=== PATIENT | male | born 1970 | race Caucasian/White ===

== ENCOUNTER → 2016-09-20 | Outpatient (CLI) | payer MEDICARE, SELFPAY ==
[~2016-09-20] MED LIST: ACETAMINOPHEN PO; B COMPLEX1 EACH PO; BETA CAROT10000 UNIT PO; CALCIUM 600 + D1 TAB PO; CALCIUM 600 +1 EA11 PO; CEFTRIAXONE2 GM IV; CUBICIN IV; CYMBALTA30 M1 PO; DAPTOMYCIN500 MG IV; DOK PLUS TABLE1 EACH PO; DOXY 100100 MG IV; DOXYCYCLINE HY100 M2 IV; DOXYCYCLINE HY100 M3 PO; FERROUS GLUCON324 M2 PO; FERROUS SULFATE PO; FISH OIL 1,2001 EAC3 PO; FLEXERIL PO; FLOMAX0.4 M1 PO; GARLIC OIL1000 MG PO; HYDROCORTISONE30 G7 TOP; IBUPROFEN800 MG PO; IRON TABLETS1 TAB PO; MAGNESIUM500 MG PO; MELATONIN10 M1 PO; MILK OF MAGNESIA PO; NEURONTIN600 MG PO; OXYCODON-ACETA1 EAC1 PO; OXYCODONE HCL5 M1 PO; PERCOCET 5-3251 TAB PO; PERCOCET 7.5-31 EACH PO; PERCOCET5/325 PO; PERCOCET7.5 PO; ROXICODONE5 M1 PO; STOOL SOFTENER100 M1 PO; SUPER B COMPLEX1 CAP PO; TUMERIC PO; TURMERIC500 M1 PO; VANCOMYCIN1.5 GM/251 IV; VIIBRYD40 MG PO; VITAMIN B 3 PO; VITAMIN B COMP1 EACH PO; VITAMIN B-1100 M1 PO; VITAMIN B1; VITAMIN D31000 UNIT PO; VITAMIN D32000 UNI1 PO; [UNRECOGNIZED DRUG - OTHER] IM
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
--- NOTE | ~2016-09-20 | XA29 ---
[facility] A Service of [facility] & [facility] RADIOLOGY TEXT RESULTS PATIENT: TITI DIETRICH [facility] UNIT #: [id number] AGE: [address]: Brad Smith MD SEX: M ORDER DR: [id number] [place] [id number] [facility]. [place], [place] [address] [id number] O MR#: [id number] Acc #: [id number] NAME: TITI DIETRICH. : 1970 SEX: M STUDY DATE/TIME: 09/20/2016 11:19 UNIT: [facility] ROOM: STUDY DESCRIPTION: XA Arthrocentesis Intermediate Attending Physician: Brad Smith M.D. Referring Physician: Brad Smith M.D. Ordering Physician: Brad Smith M.D. Primary Care Physician: No Primary Care Physician MEDICAL IMAGING REPORT This report is preliminary unless electronic signature is present EXAM Shoulder aspiration. INDICATION Mr. Flores is a 45-year-old man with a history of multiple shoulder replacements. His most recent shoulder surgery was in July 2016, where he was noted to have extensive debris around the joint. He continues to have refractory right shoulder pain and has been referred for shoulder aspiration. He did have an MRI which did show significant fluid around the replacement. PROCEDURE The risks, benefits, and alternatives to the procedure were explained to the patient and signed, informed consent was obtained. He was placed supine on the angiographic table and prepped and draped in the usual sterile fashion. Time-out was performed as per protocol. Skin and subcutaneous tissues were anesthetized with buffered lidocaine and a 18-gauge needle was advanced into the joint space. I was able to aspirate thick bloody material. I removed approximately 5 mL of material. A sample of which will be sent to the lab for Gram stain culture and sensitivity. I was unable to remove any more fluid, likely due to its thickness. Needle was then removed and manual pressure was applied until hemostasis was obtained. Patient tolerated the procedure well and there were no immediate complications. Total fluoroscopy time was 0.2 minutes. AK was 3 mGy. IMPRESSION Technically successful right shoulder aspiration with removal of about 5 mL of bloody thick material. I was unable to remove any additional fluid, likely secondary to its thickness. Fluid will be sent to the lab for Gram stain culture and sensitivity. [facility] A Service of [facility] RADIOLOGY TEXT RESULTS PATIENT: TITI DIETRICH LOCATION: [facility] : 72 UNIT #: [id number] AGE: [address]: Brad Smith MD SEX: M ORDER DR: Dictated by... Alysia Gonsalez M.D. THIS IS AN ELECTRONICALLY VERIFIED REPORT Alysia Gonsalez M.D. at 09/21/2016 4:38 PM MIKE/jory TD: 09/21/2016 09:51 JOB #: [id number] MEDICAL IMAGING REPORT Page 1 of 1 COPY
[2016-09-20 12:10] LABS: BF TOTAL NUCLEATED CELL COUNT 2989 CMM (0-100); BODY FLUID APPEARANCE BLOODY; BODY FLUID RBC 1494482 CMM; BODY FLUID SOURCE SYNOVIAL
== END | disposition home or self-care (01) ==
LOC: CMRI 07:25
PROVIDERS: Orthopaedic Surgery
DX: T84.59XA Infection and inflammatory reaction due to other internal joint prosthesis, initial encounter (principal); M25.411 Effusion, right shoulder
CPT/HCPCS: 73223; 77002; 87070; 87205; 89051; A9577

== ENCOUNTER → 2016-10-06 | Outpatient (CLI) | payer MEDICARE ==
[2016-10-06 12:55] LABS: HEMATOCRIT 45.5 % (38.0-50.0); HEMOGLOBIN 14.6 gm/dL (13.0-16.0); MEAN CORPUSCULAR HEMOGLOBIN 26.6 PG (28-34); MEAN CORPUSCULAR HGB CONC 32.1 g/dL (30-36); RED BLOOD COUNT 5.48 X10e (3.90-5.60); RED CELL DISTRIBUTION WIDTH 14.6 % (11.0-15.5); WHITE BLOOD COUNT 6.7 X10e3 (4.0-10.5)
[2016-10-06 13:32] LABS: BUN/CREATININE RATIO 18.75; CALCIUM SERUM 9.4 mg/dL (8.4-10.2); CREATININE SERUM 0.8 mg/dL (0.6-1.4); GLOM FILT RATE Estimated 109.5 mL/min (>60); POTASSIUM 4.2 mmol/L (3.5-5.1)
== END | disposition home or self-care (01) ==
LOC: CAMB 12:08
PROVIDERS: Orthopaedic Surgery
DX: Z01.812 Encounter for preprocedural laboratory examination (principal); T84.59XA Infection and inflammatory reaction due to other internal joint prosthesis, initial encounter; Z96.611 Presence of right artificial shoulder joint
CPT/HCPCS: 36415; 80048; 85027; 85652; 86140

== ENCOUNTER 2016-10-11 07:44 | Inpatient (IN) | payer MEDICARE, SELFPAY ==
--- NOTE | ~2016-10-11 | XA166 ---
[facility] A Service of [facility] & [facility] RADIOLOGY TEXT RESULTS PATIENT: TITI DIETRICH LOCATION: [facility] 472 : 72 UNIT #: [id number] AGE: [address]: Brad Smith MD SEX: M ORDER DR: [id number] [place] [id number] [facility]. [place], [place] [address] [id number] I MR#: [id number] Acc #: [id number] NAME: TITI DIETRICH. : 1970 SEX: M STUDY DATE/TIME: 10/12/2016 12:58 UNIT: [facility] ROOM: [facility] STUDY DESCRIPTION: XA PICC Line Placement WO Port Attending Physician: Brad Smith M.D. Ordering Physician: Arlyn Lawson Aprn Primary Care Physician: Primary Care Physician No MEDICAL IMAGING REPORT This report is preliminary unless electronic signature is present EXAM Left side PICC line placement. INDICATIONS Need for IV access. Patient with history of right shoulder replacement. Patient has a history of multiple infections, last shoulder surgery was October 11, 2016. PRE-PROCEDURE The procedure was explained to the patient and/or patient paper sales representative including risks, benefits, potential complications and potential for alternative forms of treatment. Informed consent was obtained, and prior to initiating the procedure a formal timeout procedure was performed. PROCEDURE Using full standard sterile barrier technique, including caps, gowns, gloves, masks, as well as sterile skin preparation and standard sterile draping, the left arm was prepped and draped in the usual fashion, and real-time sterile ultrasound guidance was used to localize an arm vein and to confirm vessel patency. A hard copy ultrasound image was recorded. After local anesthesia with 1% Xylocaine, the vein was punctured using real-time sterile ultrasound guidance, and an 0.018 guidewire was advanced into the superior vena cava, using fluoroscopic guidance. A 5 Icelandic dual-lumen PICC was then measured and deployed with the tip positioned in the superior vena cava. The position of the line was documented with a radiographic image. The line was secured in place with an adhesive dressing and an antibiotic patch was applied. Total fluoro time was 0.5 minutes. AK 4 mGy. IMPRESSION Successful placement of a 5 Icelandic dual-lumen PowerPICC via the left arm under ultrasound and fluoroscopic guidance. The tip of the PICC is in STS. [facility] A Service of [facility] & [facility] RADIOLOGY TEXT RESULTS PATIENT: TITI DIETRICH LOCATION: [place] [address] : 72 UNIT #: [id number] AGE: [address]: Brad Smith MD SEX: M ORDER DR: good position in the superior vena cava. Dictated by... Alysia Gonsalez M.D. THIS IS AN ELECTRONICALLY VERIFIED REPORT Alysia Gonsalez M.D. at 10/14/2016 2:08 PM MIKE/kandi TD: 10/13/2016 10:42 JOB #: [id number] MEDICAL IMAGING REPORT Page 1 of 1 COPY
--- NOTE | ~2016-10-11 | CR230 ---
[facility] A Service [facility] RADIOLOGY TEXT RESULTS PATIENT: TITI DIETRICH LOCATION: [place] [address] : 74 UNIT #: [id number] AGE: [address]: Brad Smith MD SEX: M ORDER DR: [id number] [address] [address] [id number] I MR#: [id number] Acc #: [id number] NAME: TITI DIETRICH. : 1970 SEX: M STUDY DATE/TIME: 10/11/2016 13:34 UNIT: [facility] ROOM: [facility] STUDY DESCRIPTION: CR Shoulder Min 2 View Rt Attending Physician: Brad Smith M.D. Ordering Physician: Brad Smith M.D. Primary Care Physician: Primary Care Physician No MEDICAL IMAGING REPORT This report is preliminary unless electronic signature is present EXAM Right shoulder 2 views HISTORY Postop right shoulder today COMPARISON 08/25/2016 FINDINGS 2 views of the right shoulder demonstrate postoperative changes from apparent methylmethacrylate spacer within the proximal right humerus. Soft tissue swelling and soft tissue gas noted consistent with recent operative intervention. AC joint unremarkable. The visualized right thorax appears normal. IMPRESSION Postoperative change of the right shoulder. Radiodense prosthesis is noted with the humeral stem component and humeral head component. This appears to represent a methylmethacrylate spacer. Normal expected postoperative findings. Dictated by... Piyush Huizar M.D. THIS IS AN ELECTRONICALLY VERIFIED REPORT Piyush Huizar M.D. at 10/11/2016 3:32 PM WASHINGTONS/josselin TD: 10/11/2016 15:08 JOB #: [id number] MEDICAL IMAGING REPORT [facility] A Service [facility] RADIOLOGY TEXT RESULTS PATIENT: TITI DIETRICH LOCATION: [place] [address] : 74 UNIT #: [id number] AGE: [address]: Brad Smith MD SEX: M ORDER DR: Page 1 of 1 COPY
--- NOTE | ~2016-10-11 | DS ---
Unit #: [id number] #: [id number] Patient: TITI SPENCE [id number] [address] [place], [place] [address] [id number] I MR#: [id number] NAME: TITI SPENCE ROOM: [facility] Age: 45 Sex: M Admission Date: 10/11/2016 : 1970 Discharge Date: 10/13/2016 Attending Physician: Brad Smith M.D. DISCHARGE SUMMARY ADMITTING DIAGNOSIS Infected right shoulder antibiotic spacer. DISCHARGE DIAGNOSIS Infected right shoulder antibiotic spacer, status post right shoulder antibiotic spacer exchange and debridement. PROCEDURES On 10/11/2016, Mr. Spence underwent a removal of a right shoulder antibiotic spacer with replacement of a new antibiotic-impregnated spacer as well as extensive debridement and synovectomy of glenohumeral joint and humeral canal. Please see operative report for further details. BRIEF HISTORY Mr. Spence is a 45-year-old patient well known to us with a complicated history of numerous right shoulder prosthetic joint infections. He currently has an antibiotic spacer in place, which then developed a large fluid collection in the right shoulder with infectious appearing debris around the antibiotic spacer. Dr. Smith recommended a debridement of the right shoulder with an antibiotic spacer exchange. The risks, benefits, and alternatives were discussed with the patient and he elected to proceed with surgery on 10/11/2016. HOSPITAL COURSE On the night of surgery, the patient was transferred to the orthopedic unit for postoperative care. The night of surgery, he remained stable. Postop x-rays taken of the right shoulder showed that he was status post placement of antibiotic spacer. The spacer remained in correct anatomical alignment. No evidence of loosening or migration. On postop day #1, the patient's vital signs remained stable. He is awake, alert, and oriented x3, in no acute distress. His right upper extremity was clean and intact with mild dry serosanguineous drainage on the dressing. He had mild erythema and warmth on the superior and posterior aspect of the shoulder. There was no palpable fluctuance or hematoma surrounding the incision site. He had 125 mL of serosanguineous drainage out of his Hemovac drain overnight. This was discontinued in the room today. He was neurovascularly intact in the median, ulnar, and radial nerves. He had normal sensation to light touch in all 5 digits. Intraoperative cultures taken from the right shoulder were pending. His white blood cell count was 8.8 and hemoglobin was 11.9. The patient was on IV vancomycin and ceftriaxone as recommended by his infectious disease Unit #: [id number] #: [id number] Patient: SPENCETITI physician, Dr. Becker. His pain was well controlled with his current pain medications. He was on aspirin and placed in SCDs for DVT prophylaxis. He was on nonweightbearing of the right upper extremity in a sling. It was felt that the erythema on the superior and posterior aspect of the shoulder was reaction to the Ioban tape on his shoulder intraoperatively. Hydrocortisone cream was ordered to be used as needed for this. The patient was also placed on Cymbalta 30 mg p.o. daily and his dose of Neurontin was increased to 300 mg p.o. t.i.d. for pain control. The planner scheduler saw the patient to work on arranging IV antibiotic administration after discharge. The patient also received a PICC line in the hospital on postop day #1. On postop day #2, the patient's vital signs remained stable. He was awake, alert, and oriented x3, in no acute distress. His incision was clean, dry, and intact. He had mild swelling surrounding the incision site. There was no warmth or erythema surrounding the incision site. He was neurovascularly intact in the median, ulnar, and radial nerves. He had normal sensation to light touch in all 5 digits. His BUN was 15, creatinine was 0.8. White blood cell count 6.3 and hemoglobin was 11.4. Intraoperative cultures of the right shoulder were still pending, but there was no growth after 48 hours. After discussing the patient's culture results thus far with his infectious disease physician, Dr. Becker, she recommended placing him on a 6-week course of IV daptomycin and ceftriaxone. We will plan to discharge him home later today with home health versus daily visit to the outpatient infusion center to receive his IV antibiotic pending insurance approval. He will remain nonweightbearing of the right upper extremity in a sling. His dressing was changed in the room today. CONDITION AT DISCHARGE Stable. DISPOSITION The patient will be discharged home, where he will receive IV antibiotics either through home nadine care or an outpatient infusion center pending the insurance approval. DISCHARGE MEDICATIONS Hydrocortisone cream one application daily as needed to affected area; Neurontin 300 mg p.o. t.i.d.; Cymbalta 30 mg p.o. daily; docusate sodium 100 mg p.o. b.i.d.; ferrous sulfate 65 mg p.o. daily; melatonin 2 mg p.o. bedtime; calcium carbonate one tablet p.o. b.i.d.; vitamin D one tablet p.o. daily; vitamin D3 1000 units p.o. daily; Percocet 7.5/325 mg one to two tablets p.o. q.4 hours p.r.n.; daptomycin 6 mg/kg IV q.24 hours for a 6-week course with the last dose on 11/22/2016; ceftriaxone 2 g IV q.24 hours for a 6-week course with a last dose on 11/22/2016. The patient was sent home with prescriptions for Neurontin 300 mg one tablet p.o. t.i.d., dispense #90; Percocet 7.5/325 mg one to two tablets p.o. q.4 hours p.r.n., dispense #65; Cymbalta 30 mg one tablet p.o. daily, dispense #30. DISCHARGE INSTRUCTIONS The patient will follow up with Dr. Smith in two weeks' time for repeat evaluation of the right shoulder. He will remain nonweightbearing of the right upper extremity in a sling. He may remove his sling two or three times daily to perform range of motion of the elbow, wrist, and hands. He will perform daily dressing changes to the right upper extremity incision. Unit #: [id number] #: [id number] Patient: TITI SPENCE He may shower, but not to get this incision wet. He must keep an occlusive dressing over the incision site when showering. We will also be coordinating lab work for the patient. He will have a CPK, CBC with diff, and CMP weekly for the next 6 weeks. These results will be faxed to his infectious disease physician, Dr. Becker at [phone] weekly. Dictated by... Efraín Sweeney APRN for Brad Smith M.D. BENJAMIN/bang TD: 10/15/2016 06:41 JOB #: [id number] DISCHARGE SUMMARY Page 1 of 1 X EFRAÍN SWEENEY APRN DISCHARGE SUMMARY
--- NOTE | ~2016-10-11 | OR ---
Unit #: [id number] #: [id number] Patient: TITI DIETRICH [id number] [address] [place], [place] [address] [id number] I MR#: [id number] NAME: TITI DIETRICH. ROOM: 472 Date of Procedure: 10/11/2016 Admission Date: 10/11/2016 Surgeon: Brad Smith M.D. : 1970 Attending Physician: Brad Smith M.D. OPERATIVE REPORT PREOPERATIVE DIAGNOSIS Infected right shoulder antibiotic spacer. POSTOPERATIVE DIAGNOSIS Infected right shoulder antibiotic spacer. PROCEDURES PERFORMED 1. Removal of right shoulder antibiotic spacer with replacement of a new antibiotic-impregnated spacer. 2. Arthrotomy of the glenohumeral joint with extensive debridement and synovectomy including humeral canal. EDI PROGRAMMER ANALYST Arlyn Lawson APRN, [employer]. ANESTHESIA General with interscalene nerve block. ESTIMATED BLOOD LOSS 150 mL. DRAINS Medium Hemovac x1. SPECIMENS 1. Right shoulder seroma for microbiology. 2. Right glenohumeral joint to microbiology and pathology including synovial tissue. 3. Right shoulder humeral canal tissue to microbiology and pathology. IMPLANTS [employer] size 10 cement antibiotic spacer with gentamicin and vancomycin. INDICATIONS FOR PROCEDURE Mr. Woods is a 45-year-old gentleman with a complicated history of numerous right shoulder prosthetic joint infections. He now has an antibiotic spacer in place and unfortunately has developed a large fluid collection in the right shoulder with infectious-appearing debris around his antibiotic spacer. Repeat debridement and spacer exchange is indicated. DESCRIPTION OF PROCEDURE Unit #: [id number] #: [id number] Patient: TITI DIETRICH The patient was identified in the preoperative holding area. The operative site was marked. A regional block was performed. Preoperative antibiotics were held pending cultures. The patient was then brought to the operating room and placed supine on the operating table. A general anesthetic was induced. The patient was positioned in the beach-chair position. The right upper extremity was prepped and draped in sterile fashion. The previous surgical incision was identified and reopened. Dissection was carried down through the subcutaneous tissues. Medial and lateral skin flaps were elevated. The prior deltopectoral interval was identified along its approximate location. Soft tissue planes were scarred and obliterated. We performed a split through this anterior soft tissue again in the approximate deltopectoral interval. The suture line was identified confirming we were in the correct plane of his prior operation. Immediately upon opening the deeper deltopectoral tissue, there was a large fluid collection which was evacuated. Cultures were taken of this fluid. There was a large amount of infectious-appearing debris. There was no purulent fluid collection. This was similar in nature to which had been present at his previous operations. This was a loose tissue from around the shaft and stem. This was removed with rongeurs and divided into two specimen containers for microbiology for culture, including AFB and fungal. The remaining tissue was sent to pathology for a permanent section. The spacer was then fully exposed. The spacer was removed uneventfully. The humeral canal was identified. There was minimal membrane formation in the humeral canal. What was present, we did remove. At the most distal extent of the canal, we did retrieve more tissue. There was some remaining cement from his prior cement removal. We removed slightly more cement, but further attempt to removing this, we felt the risk breaching the cortical canal and fracturing the humerus. Once we had adequately debrided all of synovial tissue from the glenohumeral joint and humeral canal, attention was turned to placement of a new spacer. The spacer had been premixed with vancomycin and gentamicin cement. The stem was then placed in the canal in the desired version and height. The stem was then cemented in place externally with this rim of cement on the stem itself and then around the proximal lip of the intact canal. No cement was placed within the canal itself. The stem was held while the cement was allowed to cure. This provided satisfactory stabilization and would facilitate future antibiotic spacer removal. The shoulder was then reduced and irrigated. A drain was placed and the wound was closed in a layered fashion with 0 PDS, 2-0 PDS, and nylon on the skin. Sterile dressings were applied. DISPOSITION Stable to the recovery room. Dictated by... Liana Kitchen/bang TD: 10/12/2016 01:57 JOB #: [id number] Unit #: [id number] #: [id number] Patient: TITI DIETRICH OPERATIVE REPORT Page 1 of 1 X Brad Smith MD PROCEDURE OPERATIVE NOTE
[~2016-10-11 07:44] MED LIST changes: -BETA CAROT10000 UNIT PO; -CEFTRIAXONE2 GM IV; -CUBICIN IV; -CYMBALTA30 M1 PO; -DAPTOMYCIN500 MG IV; -DOK PLUS TABLE1 EACH PO; -FERROUS GLUCON324 M2 PO; -FERROUS SULFATE PO; -FISH OIL 1,2001 EAC3 PO; -FLEXERIL PO; -GARLIC OIL1000 MG PO; -HYDROCORTISONE30 G7 TOP; -MAGNESIUM500 MG PO; -OXYCODONE HCL5 M1 PO; -PERCOCET 7.5-31 EACH PO; -TUMERIC PO; -VITAMIN B COMP1 EACH PO; -VITAMIN B-1100 M1 PO; -VITAMIN B1; -VITAMIN D31000 UNIT PO; -VITAMIN D32000 UNI1 PO
[2016-10-11 16:13] LABS: BUN/CREATININE RATIO 21.42; CALCIUM SERUM 8.6 mg/dL (8.4-10.2); CREATININE SERUM 0.7 mg/dL (0.6-1.4); GLOM FILT RATE Estimated 115.6 mL/min (>60); POTASSIUM 4.3 mmol/L (3.5-5.1)
[2016-10-12 03:42] LABS: HEMATOCRIT 36.6 % (38.0-50.0); HEMOGLOBIN 11.9 gm/dL (13.0-16.0); MEAN CELL VOLUME 82.6 FL (83-96); MEAN CORPUSCULAR HEMOGLOBIN 26.9 PG (28-34); MEAN CORPUSCULAR HGB CONC 32.6 g/dL (30-36); RED BLOOD COUNT 4.43 X10e (3.90-5.60); RED CELL DISTRIBUTION WIDTH 15.1 % (11.0-15.5); WHITE BLOOD COUNT 8.8 X10e3 (4.0-10.5)
[2016-10-13 04:33] LABS: HEMATOCRIT 35.5 % (38.0-50.0); HEMOGLOBIN 11.4 gm/dL (13.0-16.0); MEAN CELL VOLUME 83.3 FL (83-96); MEAN CORPUSCULAR HEMOGLOBIN 26.6 PG (28-34); MEAN PLATELET VOLUME 8.2 FL (6.5-11.5); RED BLOOD COUNT 4.27 X10e (3.90-5.60); RED CELL DISTRIBUTION WIDTH 15.4 % (11.0-15.5); WHITE BLOOD COUNT 6.3 X10e3 (4.0-10.5)
[2016-10-13 04:58] LABS: BUN/CREATININE RATIO 18.75; CALCIUM SERUM 8.7 mg/dL (8.4-10.2); CREATININE SERUM 0.8 mg/dL (0.6-1.4); GLOM FILT RATE Estimated 109.5 mL/min (>60); POTASSIUM 4.4 mmol/L (3.5-5.1)
[2016-10-13 13:01] LABS: BASOPHIL% 0.5 % (0-2.5); EOSINOPHIL# 0.1 X10e3 (0-0.7); EOSINOPHIL% 1.7 % (0.0-7.0); HEMATOCRIT 36.2 % (38.0-50.0); HEMOGLOBIN 11.6 gm/dL (13.0-16.0); LYMPHOCYTE# 1.4 X10e3 (1.0-3.5); LYMPHOCYTE% 17.2 % (17.0-45.0); MEAN CELL VOLUME 82.4 FL (83-96); MEAN CORPUSCULAR HEMOGLOBIN 26.3 PG (28-34); MEAN CORPUSCULAR HGB CONC 31.9 g/dL (30-36); MEAN PLATELET VOLUME 7.9 FL (6.5-11.5); MONOCYTE# 0.4 X10e3 (0-1.0); MONOCYTE% 4.5 % (3.0-12.0); NEUTROPHIL# 6.2 X10e3 (1.5-7.1); NEUTROPHIL% 76.1 % (40-75); PLATELET COUNT 199 X10e3 (140-420); RED CELL DISTRIBUTION WIDTH 15.3 % (11.0-15.5); WHITE BLOOD COUNT 8.1 X10e3 (4.0-10.5)
[2016-10-13 13:06] LABS: DIFF IND NO
[2016-10-13 13:32] LABS: ALBUMIN SERUM 3.8 g/dL (3.5-5.0); BILIRUBIN,TOTAL 0.5 mg/dL (0.2-2.0); BUN/CREATININE RATIO 18.57; CALCIUM SERUM 8.6 mg/dL (8.4-10.2); CREATININE SERUM 0.7 mg/dL (0.6-1.4); GLOM FILT RATE Estimated 115.6 mL/min (>60); POTASSIUM 3.8 mmol/L (3.5-5.1); PROTEIN TOTAL SERUM 6.3 g/dL (6.0-8.3)
[2016-10-13] MEDS ORDERED: CYMBALTA30 M1 PO (16:17)
[2016-10-13] MEDS ORDERED: VITAMIN B COMP1 EACH PO (16:29)
[2016-10-20] MEDS ORDERED: GARLIC OIL1000 MG PO (12:25)
[2016-11-21] MEDS ORDERED: TUMERIC PO (12:20)
[2016-11-21] MEDS ORDERED: VITAMIN B1 (12:26)
[2016-11-21] MEDS ORDERED: VITAMIN D31000 UNIT PO (12:45)
[2016-11-21] MEDS ORDERED: FERROUS SULFATE PO (13:06)
[2016-11-21] MEDS ORDERED: HYDROCORTISONE30 G7 TOP (16:13)
[2016-11-21] MEDS ORDERED: CEFTRIAXONE2 GM IV (16:32)
[2016-11-21] MEDS ORDERED: CUBICIN IV (16:34)
[2016-11-21] MEDS ORDERED: PERCOCET 7.5-31 EACH PO (16:40)
[2016-11-21] MEDS ORDERED: FERROUS GLUCON324 M2 PO (16:43)
[2017-01-31] MEDS ORDERED: TURMERIC500 M1 PO (11:26)
[2017-01-31] MEDS ORDERED: VITAMIN B-1100 M1 PO (11:28)
[2017-01-31] MEDS ORDERED: VITAMIN D32000 UNI1 PO (11:31)
[2017-01-31] MEDS ORDERED: MAGNESIUM500 MG PO (11:33)
[2017-01-31] MEDS ORDERED: FERROUS SULFATE PO (11:33)
[2017-01-31] MEDS ORDERED: BETA CAROT10000 UNIT PO (11:34)
[2017-01-31] MEDS ORDERED: FISH OIL 1,2001 EAC3 PO (11:35)
== END 2016-10-13 17:40 | disposition home health service (06) | DRG 512 ==
LOC: CSUR 07:44 → CPACUOF 10:18 → C4C 13:55
PROVIDERS: Orthopaedic Surgery
PROC: 0RBJ0ZZ Excision of Right Shoulder Joint, Open Approach (ICD-10-PCS; 2016-10-11)
PROC: 0RHJ08Z Insertion of Spacer into Right Shoulder Joint, Open Approach (ICD-10-PCS; 2016-10-11)
PROC: 0RPJ08Z Removal of Spacer from Right Shoulder Joint, Open Approach (ICD-10-PCS; principal; 2016-10-11 10:00)
PROC: 02HV33Z Insertion of Infusion Device into Superior Vena Cava, Percutaneous Approach (ICD-10-PCS; 2016-10-12)
PROC: B518YZA Fluoroscopy of Superior Vena Cava using Other Contrast, Guidance (ICD-10-PCS; 2016-10-12)
PROC: B548ZZA Ultrasonography of Superior Vena Cava, Guidance (ICD-10-PCS; 2016-10-12)
DX: T84.7XXA Infection and inflammatory reaction due to other internal orthopedic prosthetic devices, implants and grafts, initial encounter (principal); F17.210 Nicotine dependence, cigarettes, uncomplicated
CPT/HCPCS: 73030; 76937; 77001; 80048; 80053; 80202; 82550; 85025; 85027; 87070; 87075; 87102; 87116; 87205; 87206; 88305; 94760; C1751; C1776; J0131; J0690; J0696; J1642; J1885; J2250; J2270; J2405; J3010; J3370

== ENCOUNTER → 2016-10-15 | Outpatient (CLI) | payer MEDICARE, SELFPAY ==
[~2016-10-15] MED LIST changes: +BETA CAROT10000 UNIT PO; +CEFTRIAXONE2 GM IV; +CUBICIN IV; +CYMBALTA30 M1 PO; +DAPTOMYCIN500 MG IV; +DOK PLUS TABLE1 EACH PO; +FERROUS GLUCON324 M2 PO; +FERROUS SULFATE PO; +FISH OIL 1,2001 EAC3 PO; +FLEXERIL PO; +GARLIC OIL1000 MG PO; +HYDROCORTISONE30 G7 TOP; +MAGNESIUM500 MG PO; +OXYCODONE HCL5 M1 PO; +PERCOCET 7.5-31 EACH PO; +TUMERIC PO; +VITAMIN B COMP1 EACH PO; +VITAMIN B-1100 M1 PO; +VITAMIN B1; +VITAMIN D31000 UNIT PO; +VITAMIN D32000 UNI1 PO
== END | disposition home or self-care (01) ==
LOC: CSSDAY 07:22
DX: T84.59XA Infection and inflammatory reaction due to other internal joint prosthesis, initial encounter (principal); M01.X11 Direct infection of right shoulder in infectious and parasitic diseases classified elsewhere; Z79.2 Long term (current) use of antibiotics
CPT/HCPCS: 96365; 96374; J0696; J0878

== ENCOUNTER → 2016-10-16 | Outpatient (CLI) | payer MEDICARE, SELFPAY | END | disposition home or self-care (01) | LOC: CSSDAY 07:33 | DX: T84.59XA Infection and inflammatory reaction due to other internal joint prosthesis, initial encounter (principal); M01.X11 Direct infection of right shoulder in infectious and parasitic diseases classified elsewhere; Z79.899 Other long term (current) drug therapy | CPT/HCPCS: 96365; 96374; J0696; J0878 ==

== ENCOUNTER → 2016-10-17 | Outpatient (CLI) | payer MEDICARE, SELFPAY | END | disposition home or self-care (01) | LOC: CSSDAY 07:29 | DX: T84.59XA Infection and inflammatory reaction due to other internal joint prosthesis, initial encounter (principal); M01.X11 Direct infection of right shoulder in infectious and parasitic diseases classified elsewhere; Z79.899 Other long term (current) drug therapy | CPT/HCPCS: 96365; 96374; J0696; J0878 ==

== ENCOUNTER → 2016-10-18 | Outpatient (CLI) | payer MEDICARE, SELFPAY | END | disposition home or self-care (01) | LOC: CSSDAY 07:25 | DX: T84.59XA Infection and inflammatory reaction due to other internal joint prosthesis, initial encounter (principal); M01.X11 Direct infection of right shoulder in infectious and parasitic diseases classified elsewhere; Z79.899 Other long term (current) drug therapy | CPT/HCPCS: 96365; 96374; J0696; J0878 ==

== ENCOUNTER → 2016-10-19 | Outpatient (CLI) | payer MEDICARE, SELFPAY | END | disposition home or self-care (01) | LOC: CSSDAY 07:33 | DX: T84.59XA Infection and inflammatory reaction due to other internal joint prosthesis, initial encounter (principal); M01.X11 Direct infection of right shoulder in infectious and parasitic diseases classified elsewhere; Z79.2 Long term (current) use of antibiotics | CPT/HCPCS: 96365; 96374; J0696; J0878 ==

== ENCOUNTER → 2016-10-20 | Outpatient (CLI) | payer MEDICARE, SELFPAY | END | disposition home or self-care (01) | LOC: CSSDAY 07:21 | DX: T84.59XA Infection and inflammatory reaction due to other internal joint prosthesis, initial encounter (principal); M01.X11 Direct infection of right shoulder in infectious and parasitic diseases classified elsewhere; Z79.2 Long term (current) use of antibiotics | CPT/HCPCS: 96365; 96374; 96375; J0696; J0878 ==

== ENCOUNTER → 2016-10-21 | Day surgery (SDC) | payer MEDICARE, SELFPAY ==
--- NOTE | ~2016-10-21 | OR ---
Unit #: [id number] #: [id number] Patient: TITI DIETRICH [id number] [address] [place], [place] [address] [id number] O MR#: [id number] NAME: TITI DIETRICH ROOM: Date of Procedure: 10/21/2016 Admission Date: 10/21/2016 Surgeon: Brad Smith M.D. : 1970 Attending Physician: Brad Smith M.D. OPERATIVE REPORT PREOPERATIVE DIAGNOSIS Right shoulder postoperative wound hematoma. POSTOPERATIVE DIAGNOSIS Right shoulder postoperative wound hematoma. PROCEDURES PERFORMED 1. Right shoulder hematoma evacuation. 2. Application of vacuum-assisted wound closure device. ANESTHESIA General. ESTIMATED BLOOD LOSS Approximately 25 mL of old hematoma fluid and 10 mL of new surgical blood loss. DRAINS Prevena incisional wound VAC management system. INDICATIONS FOR PROCEDURE Mr. Flores is a 45-year-old gentleman with multiple infected left shoulder prosthetic joint infection. He has an antibiotic spacer in place after recent antibiotic spacer exchange. He now has a postoperative wound hematoma. This has been monitored for the past 3 to 4 days and treated with an incisional wound VAC. The drainage persist and at this time, evacuation was indicated. DESCRIPTION OF PROCEDURE The patient was identified in the preoperative holding area. The operative site was marked. The patient is on standing daptomycin and Rocephin. These antibiotics were held for repeat culture. The patient was brought into the operating room and placed supine on to the operating table. General anesthetic was induced. The patient was kept position supine on a standard operating table with the head of the bed elevated approximately 20 to 30 degrees. The right upper extremity was then prepped and draped in sterile fashion. The previous sutures were removed. The inferior half of the incision was reopened. The hematoma was evacuated. Again, this was approximately 25 to 30 mL of serosanguineous fluid. The deeper fascial repair of the deltopectoral interval was intact by visualized inspection of the inferior Unit #: [id number] #: [id number] Patient: TITI DIETRICH portion and digital palpation of the proximal portion. The incision was not reopened in its entirety. The wound was then irrigated. Thrombin spray was applied to the wound and pressure was held. There was no focal bleeding vessels identified. A small skin edge was cauterized with electrocautery. Minimal other electrocautery hemostasis was required. The distal extent of the wound was then reclosed with 2-0 PDS and 3-0 nylon. A Prevena wound VAC was then applied after local skin prep. We utilized a 13 cm kit. Good seal was achieved. DISPOSITION The patient was aroused from anesthesia and transported to the recovery room in stable condition. Dictated by... Liana Kitchen/bang TD: 10/22/2016 02:10 JOB #: [id number] OPERATIVE REPORT Page 1 of 1 X Brad Smith MD X PROCEDURE OPERATIVE NOTE
== END | disposition home or self-care (01) ==
LOC: CSUR 06:34
DX: T84.59XA Infection and inflammatory reaction due to other internal joint prosthesis, initial encounter (principal); M96.840 Postprocedural hematoma of a musculoskeletal structure following a musculoskeletal system procedure; F17.210 Nicotine dependence, cigarettes, uncomplicated; Z88.6 Allergy status to analgesic agent; Z79.899 Other long term (current) drug therapy
CPT/HCPCS: 87070; 87075; 87205; 97605; J0696; J0878; J1100; J1885; J2250; J2270; J2765

== ENCOUNTER → 2016-10-22 | Outpatient (CLI) | payer MEDICARE, SELFPAY | END | disposition home or self-care (01) | LOC: CSSDAY 07:01 | DX: T84.59XA Infection and inflammatory reaction due to other internal joint prosthesis, initial encounter (principal); M01.X11 Direct infection of right shoulder in infectious and parasitic diseases classified elsewhere; Z79.2 Long term (current) use of antibiotics | CPT/HCPCS: 96365; 96374; J0696; J0878 ==

== ENCOUNTER → 2016-10-23 | Outpatient (CLI) | payer MEDICARE, SELFPAY ==
[2016-10-23 08:38] LABS: HEMATOCRIT 41.9 % (38.0-50.0); HEMOGLOBIN 13.4 gm/dL (13.0-16.0); MEAN CELL VOLUME 82.8 FL (83-96); MEAN CORPUSCULAR HEMOGLOBIN 26.4 PG (28-34); MEAN CORPUSCULAR HGB CONC 31.9 g/dL (30-36); MEAN PLATELET VOLUME 8.4 FL (6.5-11.5); RED BLOOD COUNT 5.06 X10e (3.90-5.60); RED CELL DISTRIBUTION WIDTH 16.2 % (11.0-15.5); WHITE BLOOD COUNT 5.9 X10e3 (4.0-10.5)
[2016-10-23 09:19] LABS: ALBUMIN SERUM 4.2 g/dL (3.5-5.0); BILIRUBIN,TOTAL 0.2 mg/dL (0.2-2.0); CALCIUM SERUM 9.2 mg/dL (8.4-10.2); CREATININE SERUM 0.8 mg/dL (0.6-1.4); GLOM FILT RATE Estimated 109.5 mL/min (>60); PROTEIN TOTAL SERUM 6.8 g/dL (6.0-8.3)
== END | disposition home or self-care (01) ==
LOC: CSSDAY 07:19
PROVIDERS: Orthopaedic Surgery
DX: T84.59XA Infection and inflammatory reaction due to other internal joint prosthesis, initial encounter (principal); M01.X11 Direct infection of right shoulder in infectious and parasitic diseases classified elsewhere; Z79.2 Long term (current) use of antibiotics
CPT/HCPCS: 36415; 80053; 82550; 85027; 96365; 96374; J0696; J0878

== ENCOUNTER → 2016-10-25 | Outpatient (CLI) | payer MEDICARE, SELFPAY | END | disposition home or self-care (01) | LOC: CSSDAY 07:05 | DX: T84.59XA Infection and inflammatory reaction due to other internal joint prosthesis, initial encounter (principal); M01.X11 Direct infection of right shoulder in infectious and parasitic diseases classified elsewhere; Z79.2 Long term (current) use of antibiotics | CPT/HCPCS: 96365; 96374; J0696; J0878 ==

== ENCOUNTER → 2016-10-26 | Outpatient (CLI) | payer MEDICARE, SELFPAY | END | disposition home or self-care (01) | LOC: CSSDAY 07:27 | DX: T84.59XA Infection and inflammatory reaction due to other internal joint prosthesis, initial encounter (principal); M01.X11 Direct infection of right shoulder in infectious and parasitic diseases classified elsewhere; Z79.2 Long term (current) use of antibiotics | CPT/HCPCS: 96374; 96375; J0696; J0878 ==

== ENCOUNTER → 2016-10-27 | Outpatient (CLI) | payer MEDICARE, SELFPAY | END | disposition home or self-care (01) | LOC: CSSDAY 07:19 | DX: T84.59XA Infection and inflammatory reaction due to other internal joint prosthesis, initial encounter (principal); M01.X11 Direct infection of right shoulder in infectious and parasitic diseases classified elsewhere; Z79.2 Long term (current) use of antibiotics | CPT/HCPCS: 96365; 96374; 96375; J0696; J0878 ==

== ENCOUNTER → 2016-10-28 | Outpatient (CLI) | payer MEDICARE, SELFPAY | END | disposition home or self-care (01) | LOC: CSSDAY 07:16 | DX: T84.59XA Infection and inflammatory reaction due to other internal joint prosthesis, initial encounter (principal); M01.X11 Direct infection of right shoulder in infectious and parasitic diseases classified elsewhere; Z79.2 Long term (current) use of antibiotics | CPT/HCPCS: 96365; 96374; J0696; J0878 ==

== ENCOUNTER → 2016-10-29 | Outpatient (CLI) | payer MEDICARE, SELFPAY | END | disposition home or self-care (01) | LOC: CSSDAY 07:12 | DX: T84.59XA Infection and inflammatory reaction due to other internal joint prosthesis, initial encounter (principal); M01.X11 Direct infection of right shoulder in infectious and parasitic diseases classified elsewhere; Z79.2 Long term (current) use of antibiotics | CPT/HCPCS: 96365; 96374; J0696; J0878 ==

== ENCOUNTER → 2016-10-30 | Outpatient (CLI) | payer MEDICARE, SELFPAY ==
[2016-10-30 07:54] LABS: BASOPHIL# 0.1 X10e3 (0-0.3); EOSINOPHIL# 0.2 X10e3 (0-0.7); EOSINOPHIL% 3.9 % (0.0-7.0); HEMATOCRIT 42.6 % (38.0-50.0); HEMOGLOBIN 13.6 gm/dL (13.0-16.0); LYMPHOCYTE# 1.3 X10e3 (1.0-3.5); LYMPHOCYTE% 22.3 % (17.0-45.0); MEAN CELL VOLUME 83.4 FL (83-96); MEAN CORPUSCULAR HEMOGLOBIN 26.6 PG (28-34); MEAN CORPUSCULAR HGB CONC 31.9 g/dL (30-36); MEAN PLATELET VOLUME 8.5 FL (6.5-11.5); MONOCYTE# 0.3 X10e3 (0-1.0); MONOCYTE% 5.9 % (3.0-12.0); NEUTROPHIL# 3.9 X10e3 (1.5-7.1); NEUTROPHIL% 66.9 % (40-75); PLATELET COUNT 172 X10e3 (140-420); RED CELL DISTRIBUTION WIDTH 16.9 % (11.0-15.5); WHITE BLOOD COUNT 5.8 X10e3 (4.0-10.5)
[2016-10-30 07:57] LABS: DIFF IND NO
[2016-10-30 08:35] LABS: ALBUMIN SERUM 4.1 g/dL (3.5-5.0); BILIRUBIN,TOTAL 0.5 mg/dL (0.2-2.0); BUN/CREATININE RATIO 18.57; CALCIUM SERUM 9.1 mg/dL (8.4-10.2); CREATININE SERUM 0.7 mg/dL (0.6-1.4); GLOM FILT RATE Estimated 114.8 mL/min (>60); POTASSIUM 4.1 mmol/L (3.5-5.1); PROTEIN TOTAL SERUM 6.9 g/dL (6.0-8.3)
== END | disposition home or self-care (01) ==
LOC: CSSDAY 07:23
PROVIDERS: Orthopaedic Surgery
DX: T84.59XA Infection and inflammatory reaction due to other internal joint prosthesis, initial encounter (principal); M01.X11 Direct infection of right shoulder in infectious and parasitic diseases classified elsewhere; Z79.2 Long term (current) use of antibiotics
CPT/HCPCS: 80053; 82550; 85025; 96365; 96374; J0696; J0878

== ENCOUNTER → 2016-10-31 | Outpatient (CLI) | payer MEDICARE, SELFPAY | END | disposition home or self-care (01) | LOC: CSSDAY 07:16 | DX: T84.59XA Infection and inflammatory reaction due to other internal joint prosthesis, initial encounter (principal); M01.X11 Direct infection of right shoulder in infectious and parasitic diseases classified elsewhere; Z79.2 Long term (current) use of antibiotics | CPT/HCPCS: 96365; 96374; J0696; J0878 ==

== ENCOUNTER → 2016-11-01 | Outpatient (CLI) | payer MEDICARE, SELFPAY | END | disposition home or self-care (01) | LOC: CSSDAY 07:31 | DX: T84.59XA Infection and inflammatory reaction due to other internal joint prosthesis, initial encounter (principal); M01.X11 Direct infection of right shoulder in infectious and parasitic diseases classified elsewhere; Z79.2 Long term (current) use of antibiotics | CPT/HCPCS: 96365; 96374; J0696; J0878 ==

== ENCOUNTER → 2016-11-02 | Outpatient (CLI) | payer MEDICARE, SELFPAY | END | disposition home or self-care (01) | LOC: CSSDAY 07:16 | DX: T84.59XA Infection and inflammatory reaction due to other internal joint prosthesis, initial encounter (principal); M01.X11 Direct infection of right shoulder in infectious and parasitic diseases classified elsewhere; Z79.2 Long term (current) use of antibiotics | CPT/HCPCS: 96365; 96374; J0696; J0878 ==

== ENCOUNTER → 2016-11-03 | Outpatient (CLI) | payer MEDICARE, SELFPAY | END | disposition home or self-care (01) | LOC: CSSDAY 07:15 | DX: T84.59XA Infection and inflammatory reaction due to other internal joint prosthesis, initial encounter (principal); M01.X11 Direct infection of right shoulder in infectious and parasitic diseases classified elsewhere; Z79.2 Long term (current) use of antibiotics | CPT/HCPCS: 96365; 96374; J0696; J0878 ==

== ENCOUNTER → 2016-11-04 | Outpatient (CLI) | payer MEDICARE, SELFPAY | END | disposition home or self-care (01) | LOC: CSSDAY 07:07 | DX: T84.59XA Infection and inflammatory reaction due to other internal joint prosthesis, initial encounter (principal); M01.X11 Direct infection of right shoulder in infectious and parasitic diseases classified elsewhere; Z79.2 Long term (current) use of antibiotics | CPT/HCPCS: 96365; 96374; J0696; J0878 ==

== ENCOUNTER → 2016-11-05 | Outpatient (CLI) | payer MEDICARE, SELFPAY | END | disposition home or self-care (01) | LOC: CSSDAY 07:09 | DX: T84.59XA Infection and inflammatory reaction due to other internal joint prosthesis, initial encounter (principal); M01.X11 Direct infection of right shoulder in infectious and parasitic diseases classified elsewhere; Z79.2 Long term (current) use of antibiotics | CPT/HCPCS: 96365; 96374; J0696; J0878 ==

== ENCOUNTER → 2016-11-06 | Outpatient (CLI) | payer MEDICARE, SELFPAY ==
[2016-11-06 07:42] LABS: BASOPHIL# 0.1 X10e3 (0-0.3); BASOPHIL% 1.2 % (0-2.5); EOSINOPHIL# 0.2 X10e3 (0-0.7); EOSINOPHIL% 3.6 % (0.0-7.0); HEMATOCRIT 46.3 % (38.0-50.0); HEMOGLOBIN 14.9 gm/dL (13.0-16.0); LYMPHOCYTE# 1.5 X10e3 (1.0-3.5); LYMPHOCYTE% 24.4 % (17.0-45.0); MEAN CELL VOLUME 83.6 FL (83-96); MEAN CORPUSCULAR HEMOGLOBIN 26.9 PG (28-34); MEAN CORPUSCULAR HGB CONC 32.1 g/dL (30-36); MEAN PLATELET VOLUME 8.2 FL (6.5-11.5); MONOCYTE# 0.4 X10e3 (0-1.0); NEUTROPHIL# 4.1 X10e3 (1.5-7.1); NEUTROPHIL% 64.8 % (40-75); PLATELET COUNT 188 X10e3 (140-420); RED BLOOD COUNT 5.53 X10e (3.90-5.60); RED CELL DISTRIBUTION WIDTH 17.5 % (11.0-15.5); WHITE BLOOD COUNT 6.3 X10e3 (4.0-10.5)
[2016-11-06 07:43] LABS: DIFF IND NO
[2016-11-06 08:08] LABS: ALBUMIN SERUM 4.5 g/dL (3.5-5.0); BILIRUBIN,TOTAL 0.3 mg/dL (0.2-2.0); BUN/CREATININE RATIO 18.75; CALCIUM SERUM 9.3 mg/dL (8.4-10.2); CREATININE SERUM 0.8 mg/dL (0.6-1.4); GLOM FILT RATE Estimated 108.7 mL/min (>60); PROTEIN TOTAL SERUM 7.3 g/dL (6.0-8.3)
== END | disposition home or self-care (01) ==
LOC: CSSDAY 07:10
PROVIDERS: Orthopaedic Surgery
DX: T84.59XA Infection and inflammatory reaction due to other internal joint prosthesis, initial encounter (principal); M01.X11 Direct infection of right shoulder in infectious and parasitic diseases classified elsewhere; Z79.2 Long term (current) use of antibiotics
CPT/HCPCS: 80053; 82550; 85025; 96365; 96374; J0696; J0878

== ENCOUNTER → 2016-11-07 | Outpatient (CLI) | payer MEDICARE, SELFPAY | END | disposition home or self-care (01) | LOC: CSSDAY 07:20 | DX: T84.59XA Infection and inflammatory reaction due to other internal joint prosthesis, initial encounter (principal); M01.X11 Direct infection of right shoulder in infectious and parasitic diseases classified elsewhere; Z79.2 Long term (current) use of antibiotics | CPT/HCPCS: 96365; 96374; J0696; J0878 ==

== ENCOUNTER → 2016-11-08 | Outpatient (CLI) | payer MEDICARE, SELFPAY | END | disposition home or self-care (01) | LOC: CSSDAY 07:15 | DX: T84.59XA Infection and inflammatory reaction due to other internal joint prosthesis, initial encounter (principal); M01.X11 Direct infection of right shoulder in infectious and parasitic diseases classified elsewhere; Z79.2 Long term (current) use of antibiotics | CPT/HCPCS: 96365; 96374; J0696; J0878 ==

== ENCOUNTER → 2016-11-09 | Outpatient (CLI) | payer MEDICARE, SELFPAY | END | disposition home or self-care (01) | LOC: CSSDAY 07:29 | DX: T84.59XA Infection and inflammatory reaction due to other internal joint prosthesis, initial encounter (principal); M01.X11 Direct infection of right shoulder in infectious and parasitic diseases classified elsewhere; Z79.2 Long term (current) use of antibiotics | CPT/HCPCS: 96365; 96374; J0696; J0878 ==

== ENCOUNTER → 2016-11-10 | Outpatient (CLI) | payer MEDICARE, SELFPAY | END | disposition home or self-care (01) | LOC: CSSDAY 07:14 | DX: T84.59XA Infection and inflammatory reaction due to other internal joint prosthesis, initial encounter (principal); M01.X11 Direct infection of right shoulder in infectious and parasitic diseases classified elsewhere; Z79.2 Long term (current) use of antibiotics | CPT/HCPCS: 96365; 96374; J0696; J0878 ==

== ENCOUNTER → 2016-11-11 | Outpatient (CLI) | payer MEDICARE, SELFPAY | END | disposition home or self-care (01) | LOC: CSSDAY 07:07 | DX: T84.59XA Infection and inflammatory reaction due to other internal joint prosthesis, initial encounter (principal); M01.X11 Direct infection of right shoulder in infectious and parasitic diseases classified elsewhere; Z79.2 Long term (current) use of antibiotics | CPT/HCPCS: 96365; 96374; J0696; J0878 ==

== ENCOUNTER → 2016-11-12 | Outpatient (CLI) | payer MEDICARE, SELFPAY | END | disposition home or self-care (01) | LOC: CSSDAY 07:13 | DX: T84.59XA Infection and inflammatory reaction due to other internal joint prosthesis, initial encounter (principal); M01.X11 Direct infection of right shoulder in infectious and parasitic diseases classified elsewhere; Z79.899 Other long term (current) drug therapy | CPT/HCPCS: 96365; 96374; J0696; J0878 ==

== ENCOUNTER → 2016-11-13 | Outpatient (CLI) | payer MEDICARE, SELFPAY ==
[2016-11-13 08:26] LABS: BASOPHIL% 0.9 % (0-2.5); EOSINOPHIL# 0.1 X10e3 (0-0.7); EOSINOPHIL% 2.4 % (0.0-7.0); HEMATOCRIT 45.1 % (38.0-50.0); HEMOGLOBIN 14.6 gm/dL (13.0-16.0); LYMPHOCYTE# 1.1 X10e3 (1.0-3.5); LYMPHOCYTE% 19.2 % (17.0-45.0); MEAN CELL VOLUME 84.4 FL (83-96); MEAN CORPUSCULAR HEMOGLOBIN 27.3 PG (28-34); MEAN CORPUSCULAR HGB CONC 32.3 g/dL (30-36); MEAN PLATELET VOLUME 8.2 FL (6.5-11.5); MONOCYTE# 0.4 X10e3 (0-1.0); MONOCYTE% 6.6 % (3.0-12.0); NEUTROPHIL# 4.1 X10e3 (1.5-7.1); NEUTROPHIL% 70.9 % (40-75); PLATELET COUNT 193 X10e3 (140-420); RED BLOOD COUNT 5.34 X10e (3.90-5.60); RED CELL DISTRIBUTION WIDTH 17.9 % (11.0-15.5); WHITE BLOOD COUNT 5.8 X10e3 (4.0-10.5)
[2016-11-13 08:32] LABS: DIFF IND NO
[2016-11-13 08:46] LABS: ALBUMIN SERUM 4.5 g/dL (3.5-5.0); BILIRUBIN,TOTAL 0.6 mg/dL (0.2-2.0); BUN/CREATININE RATIO 17.77; CALCIUM SERUM 9.5 mg/dL (8.4-10.2); CREATININE SERUM 0.9 mg/dL (0.6-1.4); GLOM FILT RATE Estimated 103.5 mL/min (>60); POTASSIUM 4.2 mmol/L (3.5-5.1); PROTEIN TOTAL SERUM 7.4 g/dL (6.0-8.3)
== END | disposition home or self-care (01) ==
LOC: CSSDAY 07:41
PROVIDERS: Orthopaedic Surgery
DX: T84.59XA Infection and inflammatory reaction due to other internal joint prosthesis, initial encounter (principal); M01.X11 Direct infection of right shoulder in infectious and parasitic diseases classified elsewhere; Z79.2 Long term (current) use of antibiotics
CPT/HCPCS: 80053; 82550; 85025; 96365; 96374; J0696; J0878

== ENCOUNTER → 2016-11-14 | Outpatient (CLI) | payer MEDICARE, SELFPAY, OTHER | END | disposition home or self-care (01) | LOC: CSSDAY 07:23 | DX: T84.59XA Infection and inflammatory reaction due to other internal joint prosthesis, initial encounter (principal); M01.X11 Direct infection of right shoulder in infectious and parasitic diseases classified elsewhere; Z79.899 Other long term (current) drug therapy | CPT/HCPCS: 96365; 96374; J0696; J0878 ==

== ENCOUNTER → 2016-11-15 | Outpatient (CLI) | payer MEDICARE, SELFPAY | END | disposition home or self-care (01) | LOC: CSSDAY 07:07 | DX: T84.59XA Infection and inflammatory reaction due to other internal joint prosthesis, initial encounter (principal); M01.X11 Direct infection of right shoulder in infectious and parasitic diseases classified elsewhere; Z79.2 Long term (current) use of antibiotics | CPT/HCPCS: 96365; 96374; J0696; J0878 ==

== ENCOUNTER → 2016-11-16 | Outpatient (CLI) | payer MEDICARE, SELFPAY | END | disposition home or self-care (01) | LOC: CSSDAY 06:48 | DX: T84.59XA Infection and inflammatory reaction due to other internal joint prosthesis, initial encounter (principal); M01.X11 Direct infection of right shoulder in infectious and parasitic diseases classified elsewhere; Z79.2 Long term (current) use of antibiotics | CPT/HCPCS: 96365; 96374; J0696; J0878 ==

== ENCOUNTER → 2016-11-17 | Outpatient (CLI) | payer MEDICARE, SELFPAY | END | disposition home or self-care (01) | LOC: CSSDAY 07:13 | DX: T84.59XA Infection and inflammatory reaction due to other internal joint prosthesis, initial encounter (principal); M01.X11 Direct infection of right shoulder in infectious and parasitic diseases classified elsewhere; Z79.2 Long term (current) use of antibiotics | CPT/HCPCS: 96365; 96368; 96374; J0696; J0878 ==

== ENCOUNTER → 2016-11-18 | Outpatient (CLI) | payer MEDICARE, SELFPAY | END | disposition home or self-care (01) | LOC: CSSDAY 07:15 | DX: T84.59XA Infection and inflammatory reaction due to other internal joint prosthesis, initial encounter (principal); M01.X11 Direct infection of right shoulder in infectious and parasitic diseases classified elsewhere; Z79.2 Long term (current) use of antibiotics | CPT/HCPCS: 96365; 96374; 96375; J0696; J0878 ==

== ENCOUNTER → 2016-11-19 | Outpatient (CLI) | payer MEDICARE, SELFPAY | END | disposition home or self-care (01) | LOC: CSSDAY 07:19 | DX: T84.59XA Infection and inflammatory reaction due to other internal joint prosthesis, initial encounter (principal); M01.X11 Direct infection of right shoulder in infectious and parasitic diseases classified elsewhere; Z79.2 Long term (current) use of antibiotics | CPT/HCPCS: 96365; 96374; J0696; J0878 ==

== ENCOUNTER → 2016-11-20 | Outpatient (CLI) | payer MEDICARE, SELFPAY ==
[2016-11-20 08:02] LABS: BASOPHIL% 0.5 % (0-2.5); EOSINOPHIL# 0.1 X10e3 (0-0.7); EOSINOPHIL% 1.9 % (0.0-7.0); HEMATOCRIT 42.4 % (38.0-50.0); HEMOGLOBIN 13.6 gm/dL (13.0-16.0); LYMPHOCYTE# 1.2 X10e3 (1.0-3.5); LYMPHOCYTE% 18.1 % (17.0-45.0); MEAN CELL VOLUME 85.4 FL (83-96); MEAN CORPUSCULAR HEMOGLOBIN 27.4 PG (28-34); MEAN CORPUSCULAR HGB CONC 32.1 g/dL (30-36); MEAN PLATELET VOLUME 8.1 FL (6.5-11.5); MONOCYTE# 0.6 X10e3 (0-1.0); MONOCYTE% 8.5 % (3.0-12.0); NEUTROPHIL# 4.8 X10e3 (1.5-7.1); PLATELET COUNT 187 X10e3 (140-420); RED BLOOD COUNT 4.96 X10e (3.90-5.60); RED CELL DISTRIBUTION WIDTH 18.3 % (11.0-15.5); WHITE BLOOD COUNT 6.8 X10e3 (4.0-10.5)
[2016-11-20 08:03] LABS: DIFF IND NO
[2016-11-20 08:51] LABS: BILIRUBIN,TOTAL 0.5 mg/dL (0.2-2.0); BUN/CREATININE RATIO 17.77; CALCIUM SERUM 8.9 mg/dL (8.4-10.2); CREATININE SERUM 0.9 mg/dL (0.6-1.4); GLOM FILT RATE Estimated 103.5 mL/min (>60); POTASSIUM 3.8 mmol/L (3.5-5.1); PROTEIN TOTAL SERUM 6.8 g/dL (6.0-8.3)
== END | disposition home or self-care (01) ==
LOC: CSSDAY 07:16
PROVIDERS: Orthopaedic Surgery
DX: T84.59XA Infection and inflammatory reaction due to other internal joint prosthesis, initial encounter (principal); M01.X11 Direct infection of right shoulder in infectious and parasitic diseases classified elsewhere; Z79.2 Long term (current) use of antibiotics
CPT/HCPCS: 80053; 82550; 85025; 96365; J0696; J0878

== ENCOUNTER → 2016-11-21 | Outpatient (CLI) | payer MEDICARE, SELFPAY | END | disposition home or self-care (01) | LOC: CSSDAY 06:57 | DX: T84.59XA Infection and inflammatory reaction due to other internal joint prosthesis, initial encounter (principal); M01.X11 Direct infection of right shoulder in infectious and parasitic diseases classified elsewhere; Z79.2 Long term (current) use of antibiotics | CPT/HCPCS: 96365; 96374; 96375; J0696; J0878 ==

== ENCOUNTER → 2016-11-22 | Outpatient (CLI) | payer MEDICARE, SELFPAY | END | disposition home or self-care (01) | LOC: CSSDAY 07:13 | DX: T84.59XA Infection and inflammatory reaction due to other internal joint prosthesis, initial encounter (principal); M01.X11 Direct infection of right shoulder in infectious and parasitic diseases classified elsewhere; Z79.2 Long term (current) use of antibiotics | CPT/HCPCS: 96365; 96374; 96375; J0696; J0878 ==

== ENCOUNTER → 2016-11-23 | Outpatient (CLI) | payer MEDICARE, SELFPAY | END | disposition home or self-care (01) | LOC: CSSDAY 07:54 | DX: T84.59XA Infection and inflammatory reaction due to other internal joint prosthesis, initial encounter (principal); M01.X11 Direct infection of right shoulder in infectious and parasitic diseases classified elsewhere; Z79.2 Long term (current) use of antibiotics | CPT/HCPCS: 96365; 96375; J0696; J0878 ==

== ENCOUNTER → 2016-11-24 | Outpatient (CLI) | payer MEDICARE, SELFPAY | END | disposition home or self-care (01) | LOC: CSSDAY 07:10 | DX: T84.59XA Infection and inflammatory reaction due to other internal joint prosthesis, initial encounter (principal); M01.X11 Direct infection of right shoulder in infectious and parasitic diseases classified elsewhere | CPT/HCPCS: 96365; 96375; J0696; J0878 ==

== ENCOUNTER → 2016-11-25 | Outpatient (CLI) | payer MEDICARE, SELFPAY | END | disposition home or self-care (01) | LOC: CSSDAY 07:06 | DX: T84.59XA Infection and inflammatory reaction due to other internal joint prosthesis, initial encounter (principal); M01.X11 Direct infection of right shoulder in infectious and parasitic diseases classified elsewhere | CPT/HCPCS: 96365; 96374; 96375; J0696; J0878 ==

== ENCOUNTER → 2016-11-26 | Outpatient (CLI) | payer MEDICARE, SELFPAY | END | disposition home or self-care (01) | LOC: CSSDAY 07:03 | DX: T84.59XA Infection and inflammatory reaction due to other internal joint prosthesis, initial encounter (principal); M01.X11 Direct infection of right shoulder in infectious and parasitic diseases classified elsewhere | CPT/HCPCS: 96365; 96374; 96375; J0696; J0878 ==

== ENCOUNTER → 2016-11-27 | Outpatient (CLI) | payer MEDICARE, SELFPAY ==
[2016-11-27 08:26] LABS: BASOPHIL% 0.7 % (0-2.5); EOSINOPHIL# 0.2 X10e3 (0-0.7); EOSINOPHIL% 2.9 % (0.0-7.0); HEMATOCRIT 45.7 % (38.0-50.0); HEMOGLOBIN 14.7 gm/dL (13.0-16.0); LYMPHOCYTE# 1.4 X10e3 (1.0-3.5); LYMPHOCYTE% 19.7 % (17.0-45.0); MEAN CORPUSCULAR HEMOGLOBIN 27.7 PG (28-34); MEAN CORPUSCULAR HGB CONC 32.3 g/dL (30-36); MEAN PLATELET VOLUME 8.5 FL (6.5-11.5); MONOCYTE# 0.4 X10e3 (0-1.0); MONOCYTE% 6.4 % (3.0-12.0); NEUTROPHIL# 4.9 X10e3 (1.5-7.1); NEUTROPHIL% 70.3 % (40-75); PLATELET COUNT 213 X10e3 (140-420); RED BLOOD COUNT 5.31 X10e (3.90-5.60); RED CELL DISTRIBUTION WIDTH 17.7 % (11.0-15.5); WHITE BLOOD COUNT 6.9 X10e3 (4.0-10.5)
[2016-11-27 08:27] LABS: DIFF IND NO
[2016-11-27 08:51] LABS: ALBUMIN SERUM 4.3 g/dL (3.5-5.0); BILIRUBIN,TOTAL 0.8 mg/dL (0.2-2.0); BUN/CREATININE RATIO 21.25; CALCIUM SERUM 9.3 mg/dL (8.4-10.2); CREATININE SERUM 0.8 mg/dL (0.6-1.4); GLOM FILT RATE Estimated 108.7 mL/min (>60); POTASSIUM 3.8 mmol/L (3.5-5.1); PROTEIN TOTAL SERUM 7.1 g/dL (6.0-8.3)
== END | disposition home or self-care (01) ==
LOC: CSSDAY 07:25
PROVIDERS: Orthopaedic Surgery
DX: T84.59XA Infection and inflammatory reaction due to other internal joint prosthesis, initial encounter (principal); M01.X11 Direct infection of right shoulder in infectious and parasitic diseases classified elsewhere; Z79.2 Long term (current) use of antibiotics
CPT/HCPCS: 80053; 82550; 85025; 85652; 86140; 96365; 96374; 96375; J0696; J0878

== ENCOUNTER → 2016-11-28 | Outpatient (CLI) | payer MEDICARE, SELFPAY, OTHER | END | disposition home or self-care (01) | LOC: CSSDAY 07:44 | DX: T84.59XA Infection and inflammatory reaction due to other internal joint prosthesis, initial encounter (principal); M01.X11 Direct infection of right shoulder in infectious and parasitic diseases classified elsewhere | CPT/HCPCS: 96365; 96374; 96375; J0696; J0878 ==

== ENCOUNTER → 2016-11-29 | Outpatient (CLI) | payer MEDICARE, SELFPAY | END | disposition home or self-care (01) | LOC: CSSDAY 07:30 | DX: T84.59XA Infection and inflammatory reaction due to other internal joint prosthesis, initial encounter (principal); M01.X11 Direct infection of right shoulder in infectious and parasitic diseases classified elsewhere | CPT/HCPCS: 96365; 96374; 96375; J0696; J0878 ==

== ENCOUNTER → 2016-11-30 | Outpatient (CLI) | payer OTHER, SELFPAY | END | disposition home or self-care (01) | LOC: CSSDAY 06:57 | DX: T84.59XA Infection and inflammatory reaction due to other internal joint prosthesis, initial encounter (principal); M01.X11 Direct infection of right shoulder in infectious and parasitic diseases classified elsewhere | CPT/HCPCS: 96365; 96374; 96375; J0696; J0878 ==

== ENCOUNTER → 2016-12-01 | Outpatient (CLI) | payer OTHER, SELFPAY | END | disposition home or self-care (01) | LOC: CSSDAY 07:50 | DX: T84.59XA Infection and inflammatory reaction due to other internal joint prosthesis, initial encounter (principal); M01.X11 Direct infection of right shoulder in infectious and parasitic diseases classified elsewhere | CPT/HCPCS: 96365; 96374; 96375; J0696; J0878 ==

== ENCOUNTER → 2016-12-01 | Outpatient (CLI) | payer OTHER, SELFPAY ==
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
== END | disposition home or self-care (01) ==
LOC: CMRI 17:20
DX: M86.8X2 Other osteomyelitis, upper arm (principal); R59.0 Localized enlarged lymph nodes
CPT/HCPCS: 73223; A9577; J0878

== ENCOUNTER → 2016-12-02 | Outpatient (CLI) | payer OTHER, SELFPAY | END | disposition home or self-care (01) | LOC: CSSDAY 07:00 | DX: T84.59XA Infection and inflammatory reaction due to other internal joint prosthesis, initial encounter (principal); M01.X11 Direct infection of right shoulder in infectious and parasitic diseases classified elsewhere | CPT/HCPCS: 96365; 96374; 96375; J0696; J0878 ==

== ENCOUNTER → 2017-01-31 | Outpatient (CLI) | payer OTHER ==
[2017-01-31 09:37] LABS: HEMATOCRIT 48.7 % (38.0-50.0); HEMOGLOBIN 16.4 gm/dL (13.0-16.0); MEAN CELL VOLUME 88.1 FL (83-96); MEAN CORPUSCULAR HEMOGLOBIN 29.6 PG (28-34); MEAN CORPUSCULAR HGB CONC 33.6 g/dL (30-36); MEAN PLATELET VOLUME 7.8 FL (6.5-11.5); RED BLOOD COUNT 5.53 X10e (3.90-5.60); RED CELL DISTRIBUTION WIDTH 14.9 % (11.0-15.5); WHITE BLOOD COUNT 7.1 X10e3 (4.0-10.5)
[2017-01-31 10:44] LABS: BUN/CREATININE RATIO 17.77; CALCIUM SERUM 9.3 mg/dL (8.4-10.2); CREATININE SERUM 0.9 mg/dL (0.6-1.4); GLOM FILT RATE Estimated 103.5 mL/min (>60); POTASSIUM 4.2 mmol/L (3.5-5.1)
== END | disposition home or self-care (01) ==
LOC: CAMB 01-30 10:00
PROVIDERS: Orthopaedic Surgery
DX: Z01.812 Encounter for preprocedural laboratory examination (principal); M00.9 Pyogenic arthritis, unspecified
CPT/HCPCS: 36415; 80048; 85027; 85652; 86140

== ENCOUNTER 2017-02-07 09:01 | Inpatient (IN) | payer OTHER ==
[~2017-02-07] VITALS: Ht 182.9 cm; Wt 83.0 kg
--- NOTE | ~2017-02-07 | CR230 ---
[facility] A Service of [facility] RADIOLOGY TEXT RESULTS PATIENT: TITI DIETRICH LOCATION: [place] [address] : 74 UNIT #: [id number] AGE: [address]: Brad Smith MD SEX: M ORDER DR: [id number] [place] [address] [facility]. [place], [place] [address] [id number] I MR#: [id number] Acc #: [id number] NAME: TITI DIETRICH : 1970 SEX: M STUDY DATE/TIME: 02/07/2017 16:40 UNIT: [facility] ROOM: [facility] STUDY DESCRIPTION: CR Shoulder Min 2 View Rt Attending Physician: Brad Smith M.D. Ordering Physician: Caleb Min M.D. Primary Care Physician: Brad Smith M.D. MEDICAL IMAGING REPORT This report is preliminary unless electronic signature is present EXAM Right shoulder series HISTORY Status post OR shoulder removal. FINDINGS AP and transscapular view of the right shoulder presented. Artifact from clothing and supportive equipment overlying relevant anatomy. Comparison 02/02/2017. The patient is status post excision of previously seen cement density right humeral head and proximal shaft prosthesis. There is no evidence of traumatic fracture. The acromioclavicular joint remains aligned. There are radiodensities superimposed over the operative bed which may reflect small residual bone chips or cement fragments. There is air in the operative bed. Surgical drain in operative bed. Visualized ribs intact. Pulmonary parenchyma shows mild interstitial prominence which may be a reflection of atelectasis given postoperative state. Correlate with any concern for possible mild interstitial edema. Dictated by... Jordan Tidwell M.D. THIS IS AN ELECTRONICALLY VERIFIED REPORT Jordan Tidwell M.D. at 02/09/2017 7:36 AM SONAL/greta TD: 02/08/2017 06:09 JOB #: [id number] [facility] A Service [facility] RADIOLOGY TEXT RESULTS PATIENT: TITI DIETRICH LOCATION: [facility] 477-01 : 74 UNIT #: [id number] AGE: [address]: Brad Smith MD SEX: M ORDER DR: MEDICAL IMAGING REPORT Page 1 of 1 COPY
--- NOTE | ~2017-02-07 | CR230 ---
[facility] A Service of [facility] & [facility] RADIOLOGY TEXT RESULTS PATIENT: TITI DIETRICH LOCATION: [place] [address] : 74 UNIT #: [id number] AGE: [address]: Brad Smith MD SEX: M ORDER DR: [id number] [facility] [address] [facility]. [place], [place] [address] [id number] I MR#: [id number] Acc #: [id number] NAME: TITI DIETRICH : 1970 SEX: M STUDY DATE/TIME: 02/07/2017 13:33 UNIT: [facility] ROOM: [facility] STUDY DESCRIPTION: CR Shoulder Min 2 View Rt Attending Physician: Brad Smith M.D. Ordering Physician: Brad Smith M.D. Primary Care Physician: Brad Smith M.D. MEDICAL IMAGING REPORT This report is preliminary unless electronic signature is present EXAM C-arm fluoroscopy with 3 permanent images of the right shoulder, 02/07/2017. HISTORY Right shoulder cement removal in OR. FINDINGS C-arm fluoroscopy was provided for use in the operating room. Three spot film radiographs of the right shoulder were obtained in the anterior projection and 85.6 seconds of fluoroscopy time was utilized. The exam shows removal of the cement from the proximal right humerus. Dictated by... Brad Martinez M.D. THIS IS AN ELECTRONICALLY VERIFIED REPORT Brad Martinez M.D. at 02/08/2017 10:21 AM SUE/foster TD: 02/08/2017 05:32 JOB #: [id number] MEDICAL IMAGING REPORT Page 1 of 1 COPY
--- NOTE | ~2017-02-07 | XA166 ---
[facility] A Service of [facility] RADIOLOGY TEXT RESULTS PATIENT: TITI DIETRICH LOCATION: [facility] 477-01 : 74 UNIT #: [id number] AGE: [address]: Brad Smith MD SEX: M ORDER DR: [id number] [facility] [address] [facility]. [place], [place] [address] [id number] I MR#: [id number] Acc #: [id number] NAME: TITI DIETRICH : 1970 SEX: M STUDY DATE/TIME: 02/09/2017 12:38 UNIT: [facility] ROOM: [facility] STUDY DESCRIPTION: XA PICC Line Placement WO Port Attending Physician: Brad Smith M.D. Ordering Physician: Brad Smith M.D. Primary Care Physician: Brad Smith M.D. MEDICAL IMAGING REPORT This report is preliminary unless electronic signature is present EXAM PICC placement with ultrasound and fluoroscopic guidance HISTORY Venous access needed for medications. PRE-PROCEDURE The procedure was explained to the patient and/or patient new accounts representative including risks, benefits, potential complications and potential for alternative forms of treatment. Informed consent was obtained, and prior to initiating the procedure a formal timeout procedure was performed. PROCEDURE Using full standard sterile barrier technique, including caps, gowns, gloves, masks, as well as sterile skin preparation and standard sterile draping, the left arm was prepped and draped in the usual fashion, and real-time sterile ultrasound guidance was used to localize an arm vein and to confirm vessel patency. A hard copy ultrasound image was recorded. After local anesthesia with 1% Xylocaine, the vein was punctured using real-time sterile ultrasound guidance, and an 0.018 guidewire was advanced into the superior vena cava, using fluoroscopic guidance. A 5-Cymro double-lumen 46-cm PICC was then measured and deployed with the tip positioned in the superior vena cava. The position of the line was documented with a radiographic image. The line was secured in place with an adhesive dressing and an antibiotic patch was applied. Total fluoro time was 0.8 minutes. A single fluoroscopic spot image was obtained. AK 4 mGy. IMPRESSION 1. Successful placement of a 5-Cymro double-lumen 46-cm Power PICC via the right arm under ultrasound and fluoroscopic guidance. The tip of the PICC is in good position in the superior vena cava. [facility] A Service of [facility] & [facility] RADIOLOGY TEXT RESULTS PATIENT: TITI DIETRICH LOCATION: [place] [address]- : 74 UNIT #: [id number] AGE: [address]: Brad Smith MD SEX: M ORDER DR: 2. A single fluoroscopic spot image was obtained. Dictated by... Ryan Roberson M.D. THIS IS AN ELECTRONICALLY VERIFIED REPORT Ryan Roberson M.D. at 02/10/2017 11:30 AM MAREK/georges TD: 02/09/2017 22:08 JOB #: [id number] MEDICAL IMAGING REPORT Page 1 of 1 COPY
--- NOTE | ~2017-02-07 | DS ---
Unit #: [id number] #: [id number] Patient: TITI DIETRICH [id number] [address] [place], [place] [address] [id number] I MR#: [id number] NAME: TITI DIETRICH ROOM: 477 Age: 46 Sex: M Admission Date: 02/07/2017 : 1970 Discharge Date: 02/09/2017 Attending Physician: Brad Smith M.D. Primary Care Physician: Brad Smith M.D. DISCHARGE SUMMARY ADMISSION HISTORY Multiply infected right shoulder. POSTOPERATIVE DIAGNOSIS Multiply infected right shoulder. PROCEDURE THIS HOSPITALIZATION Removal right shoulder antibiotic spacer with repeat debridement and resection arthroplasty. ADMISSION HISTORY Briefly, Mr. Dietrich is a 46-year-old gentleman with a complex history of multiple operations on his right shoulder from initial proximal humerus fracture. He has undergone multiple arthroplasty options, all of which have been infected. He now returns with an infected antibiotic spacer for repeat debridement and resection arthroplasty. HOSPITAL COURSE The patient was taken to the operating room on the date of admission. For further details, please see dictated operative note. His spacer was found to be loose. We took multiple cultures and removed his spacer and attempted to remove the remaining cement. On postop day #2, the patient was up and ambulatory independently. His pain was well controlled with oral pain medications. He was medically stable for discharge home. His antibiotic plan was in place with daptomycin 6 mg/kg x6 weeks and Rocephin 2 g IV daily x6 weeks. DISCHARGE MEDICATIONS 1. Magnesium 500 mg p.o. daily. 2. Gabapentin 600 mg, two p.o. t.i.d. 3. Cymbalta 30 mg p.o. q. h.s. 4. Colace 250 mg p.o. b.i.d. 5. Ferrous sulfate 65 mg p.o. daily. 6. Fish oil daily. 7. capsule daily. 8. Melatonin 10 mg p.o. q. h.s. 9. Tumeric root 500 mg p.o. b.i.d. 10. Calcium/vitamin D supplement daily. 11. Beta-carotene 15 mg p.o. daily. 12. Vitamin B1 100 mg p.o. daily. 13. Vitamin B complex daily. 14. Vitamin D3 2000 units p.o. daily. Unit #: [id number] #: [id number] Patient: TITI DIETRICH 15. Daptomycin 6 mg/kg IV q.24 hours x6 weeks, stop date 03/23/17. 16. Rocephin 2 g IV daily x6 weeks, stop date 03/23/2017. 17. Oxycodone 5 mg, one to two tabs p.o. q.4 hours p.r.n. 18. Flexeril 5 mg p.o. t.i.d. p.r.n. FOLLOWUP Follow up in two weeks time as scheduled. Dictated by... Liana Kitchen/vida TD: 02/12/2017 05:42 JOB #: [id number] DISCHARGE SUMMARY Page 1 of 1 X Brad Smith MD X DISCHARGE SUMMARY
[~2017-02-07 09:01] MED LIST changes: -DAPTOMYCIN500 MG IV; -DOK PLUS TABLE1 EACH PO; -FLEXERIL PO; -OXYCODONE HCL5 M1 PO
[2017-02-08 04:14] LABS: HEMATOCRIT 38.8 % (38.0-50.0); MEAN CORPUSCULAR HEMOGLOBIN 29.5 PG (28-34); MEAN CORPUSCULAR HGB CONC 33.5 g/dL (30-36); MEAN PLATELET VOLUME 8.3 FL (6.5-11.5); RED BLOOD COUNT 4.4 X10e (3.90-5.60); RED CELL DISTRIBUTION WIDTH 14.6 % (11.0-15.5); WHITE BLOOD COUNT 6.9 X10e3 (4.0-10.5)
[2017-02-09 03:25] LABS: HEMATOCRIT 36.5 % (38.0-50.0); HEMOGLOBIN 12.4 gm/dL (13.0-16.0); MEAN CELL VOLUME 87.3 FL (83-96); MEAN CORPUSCULAR HEMOGLOBIN 29.5 PG (28-34); MEAN CORPUSCULAR HGB CONC 33.8 g/dL (30-36); MEAN PLATELET VOLUME 8.3 FL (6.5-11.5); RED BLOOD COUNT 4.19 X10e (3.90-5.60); RED CELL DISTRIBUTION WIDTH 14.4 % (11.0-15.5); WHITE BLOOD COUNT 6.2 X10e3 (4.0-10.5)
[2017-02-09 03:49] LABS: BUN/CREATININE RATIO 12.22; CALCIUM SERUM 8.4 mg/dL (8.4-10.2); CREATININE SERUM 0.9 mg/dL (0.6-1.4); GLOM FILT RATE Estimated 103.5 mL/min (>60); POTASSIUM 3.9 mmol/L (3.5-5.1)
[2017-02-09] MEDS ORDERED: FLEXERIL PO (14:20)
[2017-02-09] MEDS ORDERED: OXYCODONE HCL5 M1 PO (14:21)
[2017-02-09] MEDS ORDERED: DOK PLUS TABLE1 EACH PO (14:22)
[2017-02-09] MEDS ORDERED: CEFTRIAXONE2 GM IV (14:24)
[2017-02-09] MEDS ORDERED: DAPTOMYCIN500 MG IV (14:34)
== END 2017-02-09 15:30 | disposition home health service (06) | DRG 478 ==
LOC: CSUR 09:01 → C4C 16:10 → CSUR 17:59 → C4C 02-09 15:30
PROVIDERS: Orthopaedic Surgery
PROC: 0RPJ08Z Removal of Spacer from Right Shoulder Joint, Open Approach (ICD-10-PCS; principal; 2017-02-07 11:30)
PROC: 0PBC0ZX Excision of Right Humeral Head, Open Approach, Diagnostic (ICD-10-PCS; 2017-02-07 11:30)
PROC: 02HV33Z Insertion of Infusion Device into Superior Vena Cava, Percutaneous Approach (ICD-10-PCS; 2017-02-09)
PROC: B518YZA Fluoroscopy of Superior Vena Cava using Other Contrast, Guidance (ICD-10-PCS; 2017-02-09)
PROC: B548ZZA Ultrasonography of Superior Vena Cava, Guidance (ICD-10-PCS; 2017-02-09)
DX: T84.7XXA Infection and inflammatory reaction due to other internal orthopedic prosthetic devices, implants and grafts, initial encounter (principal); M86.611 Other chronic osteomyelitis, right shoulder; F32.9 Major depressive disorder, single episode, unspecified; Z88.5 Allergy status to narcotic agent; Z81.1 Family history of alcohol abuse and dependence; Z82.61 Family history of arthritis; Z82.5 Family history of asthma and other chronic lower respiratory diseases; Z81.8 Family history of other mental and behavioral disorders; G43.909 Migraine, unspecified, not intractable, without status migrainosus; Z87.891 Personal history of nicotine dependence
CPT/HCPCS: 73030; 76001; 76937; 77001; 80048; 85027; 87070; 87075; 87205; 88305; 88307; 88311; C1769; J0330; J0696; J1642; J2250; J2270; J2405; J2550; J2710; J2795; J3010; J3370

== ENCOUNTER → 2017-02-10 | Outpatient (CLI) | payer OTHER ==
[~2017-02-10] MED LIST changes: +DAPTOMYCIN500 MG IV; +DOK PLUS TABLE1 EACH PO; +FLEXERIL PO; +OXYCODONE HCL5 M1 PO
== END | disposition home or self-care (01) ==
LOC: CSSDAY 07:35
DX: T84.59XS Infection and inflammatory reaction due to other internal joint prosthesis, sequela (principal); Z96.611 Presence of right artificial shoulder joint; Z79.2 Long term (current) use of antibiotics
CPT/HCPCS: 96365; 96374; J0696; J0878

== ENCOUNTER → 2017-02-11 | Outpatient (CLI) | payer OTHER | END | disposition home or self-care (01) | LOC: CSSDAY 07:17 | DX: T84.59XS Infection and inflammatory reaction due to other internal joint prosthesis, sequela (principal); Z96.611 Presence of right artificial shoulder joint; Z79.2 Long term (current) use of antibiotics | CPT/HCPCS: 96365; 96374; J0696; J0878 ==

== ENCOUNTER → 2017-02-12 | Outpatient (CLI) | payer OTHER ==
--- NOTE | ~2017-02-12 | OR ---
Unit #: [id number] #: [id number] Patient: TITI DIETRICH [id number] [address] [place], [place] [address] [id number] O MR#: [id number] NAME: TITI DIETRICH ROOM: Date of Procedure: 02/07/2017 Admission Date: 02/12/2017 Surgeon: Brad Smith M.D. : 1970 Attending Physician: Brad Smith M.D. Primary Care Physician: Primary Care Physician No OPERATIVE REPORT PREOPERATIVE DIAGNOSIS Multiple infected right shoulder, status post placement of antibiotic spacer. POSTOPERATIVE DIAGNOSIS Multiple infected right shoulder, status post placement of antibiotic spacer. PROCEDURES PERFORMED 1. Resection arthroplasty of right shoulder. 2. Removal of right shoulder antibiotic spacer. 3. Arthrotomy with debridement of glenohumeral joint. PROGRAM DIRECTOR GROUP WORK Arlyn Lawson. ANESTHESIA General with interscalene nerve block. COMPLICATIONS None apparent. DRAINS 1. Medium Hemovac x1. 2. Prevena wound VAC management system. INDICATIONS FOR PROCEDURE Titi is a 46-year-old gentleman, who is well known to me for sequelae of a multiple infected right shoulder. He most recently has had a difficulty with an infected antibiotic spacers. He now presents with a recurrent pain in his right shoulder and MRI findings concerning for osteomyelitis and fluid collection around the implant. He presents for repeat debridement, removal of antibiotic spacer, and resection arthroplasty. We have had multiple discussions regarding the nature of the proposed operation and the nature of a resection arthroplasty in the shoulder. We have reviewed this thoroughly, so that he might have appropriate expectations and best understanding as possible what to expect from the shoulder. At this point, placement of another antibiotic spacer thought to likely continue to place him at risk for further infection. As such, at this juncture, we will not be placing a new antibiotic spacer. Unit #: [id number] #: [id number] Patient: TITI DIETRICH DESCRIPTION OF PROCEDURE The patient was identified in the preoperative holding area. The operative site was marked. Preoperative antibiotics were held. Regional anesthetic block was performed. The patient was brought to the operating room and placed supine on the operating table. A general anesthetic was induced. The patient was then positioned in the beach-chair position. The right upper extremity was prepped and draped in sterile fashion. His previous incision was identified. This was marked out with skin marking pen. This was then reopened and dissection carried down through subcutaneous tissues. We identified the best plane through the deltopectoral interval. This was scarred and fibrotic and true muscular intervals no longer identifiable. We then began elevating the deltoid down to the pseudocapsule. Once we entered the pseudocapsular tissues of the glenohumeral joint, there was clear serous fluid identified. This was cultured. In similar nature to his previous operation, there was a large volume of fibrinous exudative type debris around the implant. This was membrane like material which was easily removed with a rongeur. There was fairly copious amounts of this, but actually less than at his last operation. This tissue was taken for culture and for permanent pathology. The antibiotic spacer itself was loose and freely spinning in the humeral canal. This was removed. We then took curetting the membrane samples from the canal for pathology and microbiology. The humerus was then dissected circumferentially. A small microsagittal saw was used to resect humerus back to a level cut in the proximal humerus effectively completing resection arthroplasty. This bone was sent for permanent pathology to identify presence of chronic osteomyelitis. We then spent a considerable amount of time trying to remove any remaining cement from the canal. We used a combination of the cement removal curette and osteotomes as well as the Ultra-Drive. We removed as much cement as possible with the Ultra-Drive and the remaining cement extraction instruments. We spent upwards of 2 hours removing cement. At that point, it was felt that we can remove cement. There was some remaining visible on the C-arm imaging, but the visualization within the humeral canal diminishing risks benefit to the patient. I had concerns about overheating the canal radial nerve at risk. Therefore, we thoroughly irrigated the wound with sterile saline and then dilute Betadine solution. Finally, we irrigated with a Pulsavac. The deltopectoral interval was then reapproximated. Again, no implant was placed back into the humeral canal leaving it with a resection arthroplasty. A drain was placed into the space. The subcutaneous tissues were then closed including nylon on the skin. Prevena wound VAC dressing was applied. The patient was placed into this shoulder immobilizer. DISPOSITION Stable to the recovery room. Dictated by... Brad Smith M.D. [facility] Unit #: [id number] #: [id number] Patient: TITI DIETRICH TD: 02/12/2017 18:57 JOB #: [id number] OPERATIVE REPORT Page 1 of 1 X Brad Smith MD X PROCEDURE OPERATIVE NOTE
[2017-02-12 08:51] LABS: BASOPHIL% 0.4 % (0-2.5); EOSINOPHIL# 0.2 X10e3 (0-0.7); EOSINOPHIL% 3.9 % (0.0-7.0); HEMATOCRIT 38.7 % (38.0-50.0); HEMOGLOBIN 13.1 gm/dL (13.0-16.0); LYMPHOCYTE# 1.2 X10e3 (1.0-3.5); LYMPHOCYTE% 20.5 % (17.0-45.0); MEAN CELL VOLUME 87.3 FL (83-96); MEAN CORPUSCULAR HEMOGLOBIN 29.5 PG (28-34); MEAN CORPUSCULAR HGB CONC 33.8 g/dL (30-36); MEAN PLATELET VOLUME 7.9 FL (6.5-11.5); MONOCYTE# 0.3 X10e3 (0-1.0); MONOCYTE% 5.3 % (3.0-12.0); NEUTROPHIL# 4.1 X10e3 (1.5-7.1); NEUTROPHIL% 69.9 % (40-75); PLATELET COUNT 197 X10e3 (140-420); RED BLOOD COUNT 4.43 X10e (3.90-5.60); RED CELL DISTRIBUTION WIDTH 14.8 % (11.0-15.5); WHITE BLOOD COUNT 5.8 X10e3 (4.0-10.5)
[2017-02-12 08:52] LABS: DIFF IND NO
[2017-02-12 09:08] LABS: ALBUMIN SERUM 3.9 g/dL (3.5-5.0); BILIRUBIN,TOTAL 0.3 mg/dL (0.2-2.0); BUN/CREATININE RATIO 16.66; CALCIUM SERUM 8.6 mg/dL (8.4-10.2); CREATININE SERUM 0.9 mg/dL (0.6-1.4); GLOM FILT RATE Estimated 103.5 mL/min (>60); POTASSIUM 4.1 mmol/L (3.5-5.1); PROTEIN TOTAL SERUM 6.5 g/dL (6.0-8.3)
== END | disposition home or self-care (01) ==
LOC: CSSDAY 07:47
PROVIDERS: Orthopaedic Surgery
DX: T84.59XS Infection and inflammatory reaction due to other internal joint prosthesis, sequela (principal); Z96.611 Presence of right artificial shoulder joint
CPT/HCPCS: 80053; 82550; 85025; 85652; 86140; 96365; 96374; 96375; J0696; J0878

== ENCOUNTER → 2017-02-13 | Outpatient (CLI) | payer OTHER | END | disposition home or self-care (01) | LOC: CSSDAY 08:39 | DX: T84.59XS Infection and inflammatory reaction due to other internal joint prosthesis, sequela (principal); Z96.611 Presence of right artificial shoulder joint; Z79.2 Long term (current) use of antibiotics | CPT/HCPCS: 96365; 96374; J0696; J0878 ==

== ENCOUNTER → 2017-02-14 | Outpatient (CLI) | payer OTHER | END | disposition home or self-care (01) | LOC: CSSDAY 07:50 | DX: T84.59XS Infection and inflammatory reaction due to other internal joint prosthesis, sequela (principal); Z96.611 Presence of right artificial shoulder joint; Z79.2 Long term (current) use of antibiotics | CPT/HCPCS: 96365; 96374; J0696; J0878 ==

== ENCOUNTER → 2017-02-15 | Outpatient (CLI) | payer OTHER | END | disposition home or self-care (01) | LOC: CSSDAY 07:52 | DX: T84.59XS Infection and inflammatory reaction due to other internal joint prosthesis, sequela (principal); Z96.611 Presence of right artificial shoulder joint; Z79.2 Long term (current) use of antibiotics | CPT/HCPCS: 96365; 96374; J0696; J0878 ==

== ENCOUNTER → 2017-02-16 | Outpatient (CLI) | payer OTHER | END | disposition home or self-care (01) | LOC: CSSDAY 07:52 | DX: T84.59XS Infection and inflammatory reaction due to other internal joint prosthesis, sequela (principal); Z96.611 Presence of right artificial shoulder joint; Z79.2 Long term (current) use of antibiotics | CPT/HCPCS: 96365; 96374; J0696; J0878 ==

== ENCOUNTER → 2017-02-17 | Outpatient (CLI) | payer OTHER | END | disposition home or self-care (01) | LOC: CSSDAY 07:15 | DX: T84.59XS Infection and inflammatory reaction due to other internal joint prosthesis, sequela (principal); Z96.611 Presence of right artificial shoulder joint; Z79.2 Long term (current) use of antibiotics | CPT/HCPCS: 96365; 96374; J0696; J0878 ==

== ENCOUNTER → 2017-02-18 | Outpatient (CLI) | payer OTHER | END | disposition home or self-care (01) | LOC: CSSDAY 07:10 | DX: T84.59XS Infection and inflammatory reaction due to other internal joint prosthesis, sequela (principal); Z96.611 Presence of right artificial shoulder joint; Z79.2 Long term (current) use of antibiotics | CPT/HCPCS: 96365; 96374; J0696; J0878 ==

== ENCOUNTER → 2017-02-19 | Outpatient (CLI) | payer OTHER ==
[2017-02-19 08:35] LABS: BASOPHIL% 0.5 % (0-2.5); EOSINOPHIL# 0.3 X10e3 (0-0.7); EOSINOPHIL% 3.9 % (0.0-7.0); HEMATOCRIT 39.9 % (38.0-50.0); HEMOGLOBIN 13.5 gm/dL (13.0-16.0); LYMPHOCYTE# 1.4 X10e3 (1.0-3.5); LYMPHOCYTE% 19.3 % (17.0-45.0); MEAN CORPUSCULAR HEMOGLOBIN 29.5 PG (28-34); MEAN CORPUSCULAR HGB CONC 33.9 g/dL (30-36); MEAN PLATELET VOLUME 7.7 FL (6.5-11.5); MONOCYTE# 0.4 X10e3 (0-1.0); MONOCYTE% 5.5 % (3.0-12.0); NEUTROPHIL# 5.3 X10e3 (1.5-7.1); NEUTROPHIL% 70.8 % (40-75); PLATELET COUNT 244 X10e3 (140-420); RED BLOOD COUNT 4.59 X10e (3.90-5.60); RED CELL DISTRIBUTION WIDTH 14.4 % (11.0-15.5); WHITE BLOOD COUNT 7.5 X10e3 (4.0-10.5)
[2017-02-19 08:37] LABS: DIFF IND NO
[2017-02-19 09:05] LABS: ALBUMIN SERUM 4.1 g/dL (3.5-5.0); BILIRUBIN,TOTAL 0.6 mg/dL (0.2-2.0); BUN/CREATININE RATIO 16.25; CALCIUM SERUM 8.9 mg/dL (8.4-10.2); CREATININE SERUM 0.8 mg/dL (0.6-1.4); GLOM FILT RATE Estimated 108.7 mL/min (>60); POTASSIUM 3.8 mmol/L (3.5-5.1); PROTEIN TOTAL SERUM 6.7 g/dL (6.0-8.3)
== END | disposition home or self-care (01) ==
LOC: CSSDAY 07:25
PROVIDERS: Orthopaedic Surgery
DX: T84.59XS Infection and inflammatory reaction due to other internal joint prosthesis, sequela (principal); Z96.611 Presence of right artificial shoulder joint; Z79.2 Long term (current) use of antibiotics
CPT/HCPCS: 80053; 82550; 85025; 85652; 86140; 96365; 96374; J0696; J0878

== ENCOUNTER → 2017-02-20 | Outpatient (CLI) | payer OTHER | END | disposition home or self-care (01) | LOC: CSSDAY 08:40 | DX: T84.59XS Infection and inflammatory reaction due to other internal joint prosthesis, sequela (principal); Z96.611 Presence of right artificial shoulder joint; Z79.2 Long term (current) use of antibiotics | CPT/HCPCS: 96365; 96374; J0696; J0878 ==

== ENCOUNTER → 2017-02-21 | Outpatient (CLI) | payer OTHER ==
--- NOTE | ~2017-02-21 | OR ---
Unit #: [id number] #: [id number] Patient: TITI DIETRICH [id number] [address] [place], [place] [address] [id number] O MR#: [id number] NAME: TITI DIETRICH ROOM: Date of Procedure: 02/21/2017 Admission Date: 02/21/2017 Surgeon: Brad Smith M.D. : 1970 Attending Physician: Brad Smith M.D. Referring Physician: Brad Smith M.D. Primary Care Physician: Primary Care Physician No OPERATIVE REPORT ADDENDUM At that point, it was felt that we could no longer safely remove additional cement. There was some remaining cement visible on the C-arm imaging, but the visualization within the humeral canal demonstrated no evident cement was identifiable on direct inspection. There was felt to be diminishing benefits to removal and additional risk to the patient. I had concerns about overheating the canal with the Ultra-Drive, which would place the radial nerve at risk. Dictated by... Liana Kitchen/bang TD: 02/22/2017 02:13 JOB #: [id number] OPERATIVE REPORT Page 1 of 1 X Brad Smith MD PROCEDURE OPERATIVE NOTE
== END | disposition home or self-care (01) ==
LOC: CSSDAY 07:46
DX: T84.59XS Infection and inflammatory reaction due to other internal joint prosthesis, sequela (principal); Z96.611 Presence of right artificial shoulder joint
CPT/HCPCS: 96365; 96374; J0696; J0878

== ENCOUNTER → 2017-02-22 | Outpatient (CLI) | payer OTHER | END | disposition home or self-care (01) | LOC: CSSDAY 07:39 | DX: T84.59XS Infection and inflammatory reaction due to other internal joint prosthesis, sequela (principal); Z96.611 Presence of right artificial shoulder joint | CPT/HCPCS: 96365; 96374; J0696; J0878 ==

== ENCOUNTER → 2017-02-23 | Outpatient (CLI) | payer OTHER | END | disposition home or self-care (01) | LOC: CSSDAY 07:41 | DX: T84.59XS Infection and inflammatory reaction due to other internal joint prosthesis, sequela (principal); Z96.611 Presence of right artificial shoulder joint; Z79.2 Long term (current) use of antibiotics | CPT/HCPCS: 96365; 96374; J0696; J0878 ==

== ENCOUNTER → 2017-02-24 | Outpatient (CLI) | payer OTHER | END | disposition home or self-care (01) | LOC: CSSDAY 07:28 | DX: T84.59XS Infection and inflammatory reaction due to other internal joint prosthesis, sequela (principal); Z96.611 Presence of right artificial shoulder joint; Z79.2 Long term (current) use of antibiotics | CPT/HCPCS: 96365; 96374; J0696; J0878 ==

== ENCOUNTER → 2017-02-25 | Outpatient (CLI) | payer OTHER | END | disposition home or self-care (01) | LOC: CSSDAY 07:31 | DX: T84.59XS Infection and inflammatory reaction due to other internal joint prosthesis, sequela (principal); Z96.611 Presence of right artificial shoulder joint | CPT/HCPCS: 96365; J0696; J0878 ==

== ENCOUNTER → 2017-02-26 | Outpatient (CLI) | payer OTHER ==
[2017-02-26 08:21] LABS: BASOPHIL# 0.1 X10e3 (0-0.3); BASOPHIL% 0.8 % (0-2.5); EOSINOPHIL# 0.2 X10e3 (0-0.7); EOSINOPHIL% 3.9 % (0.0-7.0); HEMATOCRIT 42.1 % (38.0-50.0); HEMOGLOBIN 14.2 gm/dL (13.0-16.0); LYMPHOCYTE# 1.3 X10e3 (1.0-3.5); LYMPHOCYTE% 21.8 % (17.0-45.0); MEAN CELL VOLUME 87.5 FL (83-96); MEAN CORPUSCULAR HEMOGLOBIN 29.6 PG (28-34); MEAN CORPUSCULAR HGB CONC 33.8 g/dL (30-36); MEAN PLATELET VOLUME 7.7 FL (6.5-11.5); MONOCYTE# 0.3 X10e3 (0-1.0); MONOCYTE% 5.2 % (3.0-12.0); NEUTROPHIL# 4.2 X10e3 (1.5-7.1); NEUTROPHIL% 68.3 % (40-75); PLATELET COUNT 207 X10e3 (140-420); RED BLOOD COUNT 4.81 X10e (3.90-5.60); RED CELL DISTRIBUTION WIDTH 14.1 % (11.0-15.5); WHITE BLOOD COUNT 6.1 X10e3 (4.0-10.5)
[2017-02-26 08:23] LABS: DIFF IND NO
[2017-02-26 08:49] LABS: ALBUMIN SERUM 4.4 g/dL (3.5-5.0); BILIRUBIN,TOTAL 0.7 mg/dL (0.2-2.0); BUN/CREATININE RATIO 21.25; CALCIUM SERUM 9.2 mg/dL (8.4-10.2); CREATININE SERUM 0.8 mg/dL (0.6-1.4); GLOM FILT RATE Estimated 108.7 mL/min (>60); POTASSIUM 3.9 mmol/L (3.5-5.1)
== END | disposition home or self-care (01) ==
LOC: CSSDAY 07:47
PROVIDERS: Orthopaedic Surgery
DX: T84.59XS Infection and inflammatory reaction due to other internal joint prosthesis, sequela (principal); Z96.611 Presence of right artificial shoulder joint
CPT/HCPCS: 80053; 82550; 85025; 85652; 86140; 96365; 96374; J0696; J0878

== ENCOUNTER → 2017-02-27 | Outpatient (CLI) | payer OTHER | END | disposition home or self-care (01) | LOC: CSSDAY 08:02 | DX: T84.59XS Infection and inflammatory reaction due to other internal joint prosthesis, sequela (principal); Z96.611 Presence of right artificial shoulder joint | CPT/HCPCS: 96365; 96374; J0696; J0878 ==

== ENCOUNTER → 2017-02-28 | Outpatient (CLI) | payer OTHER | END | disposition home or self-care (01) | LOC: CSSDAY 08:02 | DX: T84.59XS Infection and inflammatory reaction due to other internal joint prosthesis, sequela (principal); Z96.611 Presence of right artificial shoulder joint; Z79.2 Long term (current) use of antibiotics | CPT/HCPCS: 96365; 96374; J0696; J0878 ==

== ENCOUNTER → 2017-03-01 | Outpatient (CLI) | payer OTHER | END | disposition home or self-care (01) | LOC: CSSDAY 07:30 | DX: T84.59XS Infection and inflammatory reaction due to other internal joint prosthesis, sequela (principal); Z96.611 Presence of right artificial shoulder joint; Z79.2 Long term (current) use of antibiotics | CPT/HCPCS: 96365; 96372; J0696; J0878 ==

== ENCOUNTER → 2017-03-02 | Outpatient (CLI) | payer OTHER | END | disposition home or self-care (01) | LOC: CSSDAY 07:42 | DX: T84.59XS Infection and inflammatory reaction due to other internal joint prosthesis, sequela (principal); Z96.611 Presence of right artificial shoulder joint; Z79.2 Long term (current) use of antibiotics | CPT/HCPCS: 96365; 96374; J0696; J0878 ==

== ENCOUNTER → 2017-03-03 | Outpatient (CLI) | payer OTHER | END | disposition home or self-care (01) | LOC: CSSDAY 07:28 | DX: T84.59XS Infection and inflammatory reaction due to other internal joint prosthesis, sequela (principal); Z96.611 Presence of right artificial shoulder joint; Z79.2 Long term (current) use of antibiotics | CPT/HCPCS: 96374; 96375; J0696; J0878 ==

== ENCOUNTER → 2017-03-04 | Outpatient (CLI) | payer OTHER | END | disposition home or self-care (01) | LOC: CSSDAY 07:26 | DX: T84.59XS Infection and inflammatory reaction due to other internal joint prosthesis, sequela (principal); Z96.611 Presence of right artificial shoulder joint; Z79.2 Long term (current) use of antibiotics | CPT/HCPCS: 96365; 96374; J0696; J0878 ==

== ENCOUNTER → 2017-03-05 | Outpatient (CLI) | payer OTHER ==
[2017-03-05 08:10] LABS: BASOPHIL% 0.5 % (0-2.5); EOSINOPHIL# 0.3 X10e3 (0-0.7); EOSINOPHIL% 4.2 % (0.0-7.0); HEMATOCRIT 42.2 % (38.0-50.0); HEMOGLOBIN 14.3 gm/dL (13.0-16.0); LYMPHOCYTE# 1.3 X10e3 (1.0-3.5); LYMPHOCYTE% 20.2 % (17.0-45.0); MEAN CELL VOLUME 87.9 FL (83-96); MEAN CORPUSCULAR HEMOGLOBIN 29.7 PG (28-34); MEAN CORPUSCULAR HGB CONC 33.8 g/dL (30-36); MEAN PLATELET VOLUME 7.9 FL (6.5-11.5); MONOCYTE# 0.4 X10e3 (0-1.0); MONOCYTE% 5.8 % (3.0-12.0); NEUTROPHIL# 4.4 X10e3 (1.5-7.1); NEUTROPHIL% 69.3 % (40-75); PLATELET COUNT 176 X10e3 (140-420); RED CELL DISTRIBUTION WIDTH 14.9 % (11.0-15.5); WHITE BLOOD COUNT 6.3 X10e3 (4.0-10.5)
[2017-03-05 08:47] LABS: DIFF IND NO
[2017-03-05 08:49] LABS: ALBUMIN SERUM 4.4 g/dL (3.5-5.0); BILIRUBIN,TOTAL 0.1 mg/dL (0.2-2.0); BUN/CREATININE RATIO 22.5; CALCIUM SERUM 8.9 mg/dL (8.4-10.2); CREATININE SERUM 0.8 mg/dL (0.6-1.4); GLOM FILT RATE Estimated 108.7 mL/min (>60); POTASSIUM 3.9 mmol/L (3.5-5.1)
== END | disposition home or self-care (01) ==
LOC: CSSDAY 07:30
PROVIDERS: Orthopaedic Surgery
DX: T84.59XS Infection and inflammatory reaction due to other internal joint prosthesis, sequela (principal); Z96.611 Presence of right artificial shoulder joint; Z79.2 Long term (current) use of antibiotics
CPT/HCPCS: 80053; 82550; 85025; 85652; 86140; 96365; 96374; J0696; J0878

== ENCOUNTER → 2017-03-06 | Outpatient (CLI) | payer OTHER | END | disposition home or self-care (01) | LOC: CSSDAY 07:47 | DX: T84.59XS Infection and inflammatory reaction due to other internal joint prosthesis, sequela (principal); Z96.611 Presence of right artificial shoulder joint; Z79.2 Long term (current) use of antibiotics | CPT/HCPCS: 96365; 96374; J0696; J0878 ==

== ENCOUNTER → 2017-03-07 | Outpatient (CLI) | payer OTHER | END | disposition home or self-care (01) | LOC: CSSDAY 08:03 | DX: T84.59XS Infection and inflammatory reaction due to other internal joint prosthesis, sequela (principal); Z96.611 Presence of right artificial shoulder joint; Z79.2 Long term (current) use of antibiotics | CPT/HCPCS: 96365; 96374; J0696; J0878 ==

== ENCOUNTER → 2017-03-08 | Outpatient (CLI) | payer OTHER | END | disposition home or self-care (01) | LOC: CSSDAY 07:43 | DX: T84.59XS Infection and inflammatory reaction due to other internal joint prosthesis, sequela (principal); Z96.611 Presence of right artificial shoulder joint; Z79.2 Long term (current) use of antibiotics | CPT/HCPCS: 96365; 96374; J0696; J0878 ==

== ENCOUNTER → 2017-03-09 | Outpatient (CLI) | payer OTHER | END | disposition home or self-care (01) | LOC: CSSDAY 07:25 | DX: T84.59XS Infection and inflammatory reaction due to other internal joint prosthesis, sequela (principal); Z96.611 Presence of right artificial shoulder joint; Z79.2 Long term (current) use of antibiotics | CPT/HCPCS: 96365; 96374; J0696; J0878 ==

== ENCOUNTER → 2017-03-10 | Outpatient (CLI) | payer OTHER | END | disposition home or self-care (01) | LOC: CSSDAY 07:26 | DX: T84.59XS Infection and inflammatory reaction due to other internal joint prosthesis, sequela (principal); Z96.611 Presence of right artificial shoulder joint; Z79.2 Long term (current) use of antibiotics | CPT/HCPCS: 96365; 96374; J0696; J0878 ==

== ENCOUNTER → 2017-03-11 | Outpatient (CLI) | payer OTHER | END | disposition home or self-care (01) | LOC: CSSDAY 07:21 | DX: T84.59XS Infection and inflammatory reaction due to other internal joint prosthesis, sequela (principal); Z96.611 Presence of right artificial shoulder joint; Z79.2 Long term (current) use of antibiotics | CPT/HCPCS: 96365; 96374; J0696; J0878 ==

== ENCOUNTER → 2017-03-12 | Outpatient (CLI) | payer OTHER ==
[2017-03-12 08:04] LABS: HEMOGLOBIN 14.9 gm/dL (13.0-16.0); MEAN CELL VOLUME 88.6 FL (83-96); MEAN CORPUSCULAR HGB CONC 33.8 g/dL (30-36); MEAN PLATELET VOLUME 8.1 FL (6.5-11.5); RED BLOOD COUNT 4.96 X10e (3.90-5.60); RED CELL DISTRIBUTION WIDTH 14.9 % (11.0-15.5); WHITE BLOOD COUNT 6.2 X10e3 (4.0-10.5)
[2017-03-12 08:33] LABS: ALBUMIN SERUM 4.3 g/dL (3.5-5.0); BILIRUBIN,TOTAL 0.5 mg/dL (0.2-2.0); CALCIUM SERUM 8.9 mg/dL (8.4-10.2); CREATININE SERUM 0.8 mg/dL (0.6-1.4); GLOM FILT RATE Estimated 108.7 mL/min (>60); POTASSIUM 3.9 mmol/L (3.5-5.1); PROTEIN TOTAL SERUM 6.8 g/dL (6.0-8.3)
== END | disposition home or self-care (01) ==
LOC: CSSDAY 07:38
PROVIDERS: Orthopaedic Surgery
DX: T84.59XS Infection and inflammatory reaction due to other internal joint prosthesis, sequela (principal); Z96.611 Presence of right artificial shoulder joint; Z79.2 Long term (current) use of antibiotics
CPT/HCPCS: 80053; 82550; 85027; 85652; 86140; 96365; 96374; J0696; J0878

== ENCOUNTER → 2017-03-13 | Outpatient (CLI) | payer OTHER | END | disposition home or self-care (01) | LOC: CSSDAY 07:33 | DX: T84.59XS Infection and inflammatory reaction due to other internal joint prosthesis, sequela (principal); Z96.611 Presence of right artificial shoulder joint; Z79.2 Long term (current) use of antibiotics; Z95.828 Presence of other vascular implants and grafts | CPT/HCPCS: 96365; 96374; J0696; J0878 ==

== ENCOUNTER → 2017-03-14 | Outpatient (CLI) | payer OTHER | END | disposition home or self-care (01) | LOC: CSSDAY 08:01 | DX: T84.59XS Infection and inflammatory reaction due to other internal joint prosthesis, sequela (principal); Z96.611 Presence of right artificial shoulder joint; Z79.2 Long term (current) use of antibiotics; Z95.828 Presence of other vascular implants and grafts | CPT/HCPCS: 96365; 96374; J0696; J0878 ==

== ENCOUNTER → 2017-03-15 | Outpatient (CLI) | payer OTHER | END | disposition home or self-care (01) | LOC: CSSDAY 07:40 | DX: T84.59XS Infection and inflammatory reaction due to other internal joint prosthesis, sequela (principal); Z79.2 Long term (current) use of antibiotics | CPT/HCPCS: 96365; 96374; J0696; J0878 ==

== ENCOUNTER → 2017-03-16 | Outpatient (CLI) | payer OTHER | END | disposition home or self-care (01) | LOC: CSSDAY 07:50 | DX: T84.59XS Infection and inflammatory reaction due to other internal joint prosthesis, sequela (principal); Z79.2 Long term (current) use of antibiotics | CPT/HCPCS: 96365; 96374; J0696; J0878 ==

== ENCOUNTER → 2017-03-17 | Outpatient (CLI) | payer OTHER | END | disposition home or self-care (01) | LOC: CSSDAY 07:36 | DX: T84.59XS Infection and inflammatory reaction due to other internal joint prosthesis, sequela (principal); Z96.611 Presence of right artificial shoulder joint; Z79.2 Long term (current) use of antibiotics; Z95.828 Presence of other vascular implants and grafts | CPT/HCPCS: 96365; 96374; J0696; J0878 ==

== ENCOUNTER → 2017-03-18 | Outpatient (CLI) | payer OTHER | END | disposition home or self-care (01) | LOC: CSSDAY 07:45 | DX: T84.59XS Infection and inflammatory reaction due to other internal joint prosthesis, sequela (principal); Z96.611 Presence of right artificial shoulder joint; Z79.2 Long term (current) use of antibiotics; Z95.828 Presence of other vascular implants and grafts | CPT/HCPCS: 96365; 96374; J0696; J0878 ==

== ENCOUNTER → 2017-03-19 | Outpatient (CLI) | payer OTHER ==
[2017-03-19 09:09] LABS: HEMATOCRIT 43.5 % (38.0-50.0); HEMOGLOBIN 14.9 gm/dL (13.0-16.0); MEAN CELL VOLUME 88.7 FL (83-96); MEAN CORPUSCULAR HEMOGLOBIN 30.5 PG (28-34); MEAN CORPUSCULAR HGB CONC 34.4 g/dL (30-36); MEAN PLATELET VOLUME 8.1 FL (6.5-11.5); RED BLOOD COUNT 4.9 X10e (3.90-5.60); WHITE BLOOD COUNT 7.9 X10e3 (4.0-10.5)
[2017-03-19 10:15] LABS: ALBUMIN SERUM 4.2 g/dL (3.5-5.0); BILIRUBIN,TOTAL 0.5 mg/dL (0.2-2.0); CALCIUM SERUM 8.7 mg/dL (8.4-10.2); CREATININE SERUM 0.9 mg/dL (0.6-1.4); GLOM FILT RATE Estimated 103.5 mL/min (>60); POTASSIUM 3.8 mmol/L (3.5-5.1); PROTEIN TOTAL SERUM 6.5 g/dL (6.0-8.3)
== END | disposition home or self-care (01) ==
LOC: CSSDAY 08:11
PROVIDERS: Orthopaedic Surgery
DX: T84.59XS Infection and inflammatory reaction due to other internal joint prosthesis, sequela (principal); Z96.611 Presence of right artificial shoulder joint; Z79.2 Long term (current) use of antibiotics
CPT/HCPCS: 80053; 82550; 85027; 85652; 86140; 96365; 96375; J0696; J0878

== ENCOUNTER → 2017-03-20 | Outpatient (CLI) | payer OTHER | END | disposition home or self-care (01) | LOC: CSSDAY 07:59 | DX: T84.59XS Infection and inflammatory reaction due to other internal joint prosthesis, sequela (principal); Z96.611 Presence of right artificial shoulder joint; Z79.2 Long term (current) use of antibiotics | CPT/HCPCS: 96365; 96374; J0696; J0878 ==